=== PATIENT | male | born 1950 | race Caucasian/White ===

== ENCOUNTER 2020-12-12 09:18 | Inpatient (IN) | payer OTHER ==
[~2020-12-12] VITALS: Ht 182.9 cm; Wt 120.2 kg
[2020-12-12 09:40] LABS: BASOPHILS 0.2 % (0-2); EOSINOPHILS 1.6 % (0-7); HEMATOCRIT 43.4 % (42.0-54.0); HEMOGLOBIN 14.8 g/dL (13.5-17.5); IMMATURE GRANULOCYTES 0.4 % (0-5); LYMPHOCYTE ABS# 2.66 10x3/uL (1.32-3.57); LYMPHOCYTES 28.1 % (15-50); MCH 32.6 pg (26.0-34.0); MCHC 34.1 g/dL (31.0-37.0); MCV 95.6 fL (80.0-100.0); MEAN PLATELET VOLUME 9.1 fL (7.4-10.4); MONOCYTES 9.2 % (2-11); NEUTROPHIL ABS# 5.74 10x3/uL (1.78-5.38); NEUTROPHILS 60.5 % (40-80); PLATELET COUNT 221 10x3/uL (130-400); RBC 4.54 10x6/uL (4.20-6.10); RDW 13.3 % (11.5-14.5); WBC 9.5 10x3/uL (4.8-10.8)
[2020-12-12 09:48] LABS: CALC OSMOLALITY 282 mosm/kg (275-300); CALCIUM 9.3 mg/dL (8.5-10.1); CARBON DIOXIDE 27.1 mmol/L (21.0-32.0); CHLORIDE - SERUM 100 mmol/L (98-107); CREATININE - SERUM 1.4 mg/dL (0.6-1.3); GLUCOSE 178 mg/dL (74-106); POTASSIUM - SERUM 3.5 mmol/L (3.5-5.1); SODIUM 138 mmol/L (136-145); UREA NITROGEN 21 mg/dL (7-18); eGFR NON AFRICAN AMERICAN 53 mL/min (90-120)
[2020-12-12 10:02] LABS: ALBUMIN 3.6 g/dL (3.4-5.0); ALKALINE PHOSPHATASE 48 U/L (30-120); ALT (SGPT) 35 U/L (10-68); BILIRUBIN - TOTAL 0.46 mg/dL (0.2-1.3); MAGNESIUM - SERUM 1.8 mg/dL (1.8-2.4); PRO BNP 128 pg/mL (0-125); PROTEIN - SERUM 7.3 g/dL (6.4-8.2); TROPONIN-I < 0.017 ng/mL (0.000-0.060)
[2020-12-12 10:06] LABS: APTT 23.8 SECONDS (22.8-39.4); INR 1.01 (0.85-1.17); PROTIME 12.3 SECONDS (11.6-15.0)
[2020-12-12 10:08] LABS: D-DIMER-QUANTITATIVE < 0.27 ug/mLFEU (0.20-0.54)
--- NOTE | 2020-12-12 10:52 | NUR ---
DR. RIZO AND ROUSTABOUT CREW PUSHER AT BEDSIDE PERFORMING CHEST TUBE INSERTION AT THIS TIME. CONSENT SIGNED AND ON CHART PRIOR TO PATIETN RECEIVING PAIN MEDICATIONS. PATIENT RECEIVED PAIN MEDS PRIOR TO PROCEDURE STARTING. PATIENT AWAKE AND ALERT AT THIS TIME AND ON MONITORS.
--- NOTE | 2020-12-12 11:03 | NUR ---
PROCEDURE COMPLETE AT THIS TIME. 28 MALIAN CHEST TUBE PLACED TO LEFT CHEST WALL, HOOKED TO CHEST TUBE DRAINING SYSTEM WITH OCCLUSIVE DRESSING IN PLACE. DRAINAGE SYSTEM HOOKED TO LOW SUCTION AT SUGGESTED RATE. PATIETN TOLERATED WELL AND STATES ALREADY FEELS MUCH BETTER AND CAN TAKE A DEEP BREATH. PATIETN RESTING QUIETLY AT THIS TIME. CXR ORDERED FOR VERIFICATION OF PLACEMENT.
[2020-12-12 11:14] VITALS: BP 137/77
[2020-12-12 13:52] VITALS: BP 134/83
[2020-12-12] MEDS ORDERED: TENORMIN100 MG PO (15:01)
[2020-12-12] MEDS ORDERED: LIPITOR20 MG PO (15:03)
[2020-12-12] MEDS ORDERED: PROSCAR5 MG PO (15:04)
[2020-12-12] MEDS ORDERED: FENOFIBRATE160 MG PO (15:05)
[2020-12-12] MEDS ORDERED: GABAPENTIN300 MG PO ×2 (15:05→18:23)
[2020-12-12] MEDS ORDERED: GLUCOPHAGE500 MG PO (15:05)
[2020-12-12] MEDS ORDERED: SINGULAIR10 MG PO (15:06)
[2020-12-12] MEDS ORDERED: PROTONIX40 MG PO (15:06)
--- NOTE | 2020-12-12 15:40 | NUR ---
PATIENT TO GET CT REINSERTED.
[2020-12-12 15:46] VITALS: BP 177/99; BMI 32.6
--- NOTE | 2020-12-12 16:30 | NUR ---
PATIENT IN ROOM WITH IV INTACT, VS STABLE. BREATHING A LOT EASIER NOW. NO DISTRESS. O2 ON 3LNC. CT TO 20 CM SUCTION. DRESSING CDI. BSCDS ON AND WORKING. CALL LIGHT WITHIN REACH.
--- NOTE | 2020-12-12 17:45 | NUR ---
PATIENT IN BED WITH IV INTACT. NO COMPLAINTS OR SIGNS OF DISTRESS. CT INTACT AND TO 20CM SUCTION. SITTING UP IN BED WITH SCDS ON AND WORKING. CALL LIGHT WITHIN REACH.
[2020-12-12] MEDS ORDERED: BENADRYL50 MG PO (18:24)
[2020-12-12] MEDS ORDERED: FLOMAX0.4 MG PO (18:26)
[2020-12-12] MEDS ORDERED: TRELEGY ELLIPT1 EACH INH (18:28)
--- NOTE | 2020-12-12 20:03 | NUR ---
SPOKE WITH ARNULFO PARIS ABOUT PATIENTS NIGHT MEDS. STATED HE WOULD LOOK AT PATIENTS MED REC AT THIS TIME. CALL LIGHT WITHIN REACH.
[2020-12-12 20:40] VITALS: BP 156/75
[2020-12-13 01:49] VITALS: BP 134/75
--- NOTE | 2020-12-13 06:10 | NUR ---
I have reviewed this patient and I concur with the Shift Assessment completed by the Licensed Practical Nurse today this shift.
[2020-12-13 06:30] VITALS: BP 157/70
[2020-12-13 06:51] LABS: BASOPHILS 0.2 % (0-2); EOSINOPHILS 4.4 % (0-7); HEMATOCRIT 38.8 % (42.0-54.0); HEMOGLOBIN 12.9 g/dL (13.5-17.5); IMMATURE GRANULOCYTES 0.5 % (0-5); LYMPHOCYTE ABS# 1.15 10x3/uL (1.32-3.57); LYMPHOCYTES 18.2 % (15-50); MCH 32.2 pg (26.0-34.0); MCHC 33.2 g/dL (31.0-37.0); MCV 96.8 fL (80.0-100.0); MEAN PLATELET VOLUME 9.5 fL (7.4-10.4); MONOCYTES 10.4 % (2-11); NEUTROPHIL ABS# 4.19 10x3/uL (1.78-5.38); NEUTROPHILS 66.3 % (40-80); PLATELET COUNT 194 10x3/uL (130-400); RBC 4.01 10x6/uL (4.20-6.10); RDW 13.3 % (11.5-14.5)
[2020-12-13 07:05] LABS: ALBUMIN 2.9 g/dL (3.4-5.0); ANION GAP 11.4 mmol/L (8-16); BILIRUBIN - TOTAL 0.83 mg/dL (0.2-1.3); CALCIUM 8.2 mg/dL (8.5-10.1); CREATININE - SERUM 1.2 mg/dL (0.6-1.3); POTASSIUM - SERUM 3.4 mmol/L (3.5-5.1); PROTEIN - SERUM 6.3 g/dL (6.4-8.2)
[2020-12-13 07:09] LABS: WBC 6.3 10x3/uL (4.8-10.8)
--- NOTE | 2020-12-13 07:34 | NUR ---
RESTING IN BED WITH EYES OPEN, ALERT AND ORIENTED. IV LOCATED TO LEFT AC CURRENTLY SL. CURRENTLY RCVING 3L VIA NC. CHEST TUBE PRESENT TO LEFT SIDE. NO CURRENT S/S OF DISTRESS AT THIS TIME, DENIES CURRENT NEEDS, WILL CONT TO MONITOR.
[2020-12-13 09:23] VITALS: BP 142/66
[2020-12-13 13:30] VITALS: BP 133/67
--- NOTE | 2020-12-13 14:12 | NUR ---
REMOVED TEGADERM FROM AROUND CHEST TUBE SITE, THE ADHESIVE IS IRRITATING PTS SKIN AND CAUSING IT TO BLISTER AROUND THE EDGES WHERE THE TEGADERM REPLACED DRESSING WITH 4X4S AND METAPOR TAPE.
--- NOTE | 2020-12-13 16:12 | NUR ---
LINENS/GOWN CHANGED.
[2020-12-13 17:14] VITALS: BP 131/59
[2020-12-13 20:00] VITALS: BP 139/68
[2020-12-14] VITALS: BP 128/7
--- NOTE | 2020-12-14 01:31 | NUR ---
I have reviewed this patient and I concur with the Shift Assessment completed by the Licensed Practical Nurse today this shift.
[2020-12-14 04:00] VITALS: BP 132/79
[2020-12-14 07:33] LABS: BASOPHILS 0 % (0-2); EOSINOPHILS 0 % (0-7); HEMATOCRIT 41.4 % (42.0-54.0); HEMOGLOBIN 13.8 g/dL (13.5-17.5); IMMATURE GRANULOCYTES 0.5 % (0-5); LYMPHOCYTE ABS# 0.75 10x3/uL (1.32-3.57); LYMPHOCYTES 8.1 % (15-50); MCH 32.2 pg (26.0-34.0); MCHC 33.3 g/dL (31.0-37.0); MCV 96.5 fL (80.0-100.0); MEAN PLATELET VOLUME 9.5 fL (7.4-10.4); MONOCYTES 3.5 % (2-11); NEUTROPHIL ABS# 8.15 10x3/uL (1.78-5.38); NEUTROPHILS 87.9 % (40-80); PLATELET COUNT 228 10x3/uL (130-400); RBC 4.29 10x6/uL (4.20-6.10); RDW 13.1 % (11.5-14.5); WBC 9.3 10x3/uL (4.8-10.8)
[2020-12-14 07:37] LABS: ALBUMIN 3.2 g/dL (3.4-5.0); ANION GAP 15.1 mmol/L (8-16); BILIRUBIN - TOTAL 0.62 mg/dL (0.2-1.3); CALCIUM 8.9 mg/dL (8.5-10.1); CARBON DIOXIDE 24.7 mmol/L (21.0-32.0); CREATININE - SERUM 1.2 mg/dL (0.6-1.3); POTASSIUM - SERUM 3.8 mmol/L (3.5-5.1); PROTEIN - SERUM 7.3 g/dL (6.4-8.2)
[2020-12-14 09:10] VITALS: BP 132/65
[2020-12-14 13:37] VITALS: BP 142/65
[2020-12-14 17:03] VITALS: BP 132/61
[2020-12-14 20:00] VITALS: BP 142/75
[2020-12-15] VITALS: BP 148/72
[2020-12-15 04:00] VITALS: BP 150/75
[2020-12-15 07:06] LABS: BASOPHILS 0.1 % (0-2); EOSINOPHILS 0.4 % (0-7); HEMATOCRIT 38.7 % (42.0-54.0); HEMOGLOBIN 13.4 g/dL (13.5-17.5); IMMATURE GRANULOCYTES 0.7 % (0-5); LYMPHOCYTE ABS# 0.96 10x3/uL (1.32-3.57); LYMPHOCYTES 7.9 % (15-50); MCH 33.6 pg (26.0-34.0); MCHC 34.6 g/dL (31.0-37.0); MEAN PLATELET VOLUME 9.6 fL (7.4-10.4); NEUTROPHIL ABS# 10.18 10x3/uL (1.78-5.38); NEUTROPHILS 83.9 % (40-80); PLATELET COUNT 244 10x3/uL (130-400); RBC 3.99 10x6/uL (4.20-6.10); RDW 13.2 % (11.5-14.5)
[2020-12-15 07:07] LABS: WBC 12.1 10x3/uL (4.8-10.8)
[2020-12-15 07:12] LABS: ALBUMIN 2.9 g/dL (3.4-5.0); ANION GAP 13.9 mmol/L (8-16); BILIRUBIN - TOTAL 0.39 mg/dL (0.2-1.3); CALCIUM 8.7 mg/dL (8.5-10.1); CARBON DIOXIDE 25.2 mmol/L (21.0-32.0); CREATININE - SERUM 1.2 mg/dL (0.6-1.3); POTASSIUM - SERUM 4.1 mmol/L (3.5-5.1); PROTEIN - SERUM 6.7 g/dL (6.4-8.2)
[2020-12-15 08:37] VITALS: BP 139/73
[2020-12-15 12:52] VITALS: BP 150/77
[2020-12-15 17:31] VITALS: BP 147/80
--- NOTE | 2020-12-16 05:17 | NUR ---
Pt is resting in bed with significant other resting in recliner in room. No c/o pain. Did have some discomfort begining of shift and pt was SOB. Found to be laying on CT tube. Same moved and problem resolved immediately. Sats>90%. Continues on O2 via NC and CT also continues to output very small amount. Providers are aware of minimal drainage for CT tubes.
[2020-12-16 05:43] LABS: BASOPHILS 0.1 % (0-2); EOSINOPHILS 1.3 % (0-7); HEMATOCRIT 39.6 % (42.0-54.0); HEMOGLOBIN 13.4 g/dL (13.5-17.5); IMMATURE GRANULOCYTES 0.7 % (0-5); LYMPHOCYTE ABS# 1.65 10x3/uL (1.32-3.57); LYMPHOCYTES 15.7 % (15-50); MCH 32.5 pg (26.0-34.0); MCHC 33.8 g/dL (31.0-37.0); MCV 96.1 fL (80.0-100.0); MEAN PLATELET VOLUME 9.3 fL (7.4-10.4); MONOCYTES 10.6 % (2-11); NEUTROPHIL ABS# 7.53 10x3/uL (1.78-5.38); NEUTROPHILS 71.6 % (40-80); PLATELET COUNT 249 10x3/uL (130-400); RBC 4.12 10x6/uL (4.20-6.10); RDW 13.3 % (11.5-14.5); WBC 10.5 10x3/uL (4.8-10.8)
[2020-12-16 05:58] LABS: ALBUMIN 2.9 g/dL (3.4-5.0); ANION GAP 13.4 mmol/L (8-16); BILIRUBIN - TOTAL 0.35 mg/dL (0.2-1.3); CALCIUM 9.1 mg/dL (8.5-10.1); CARBON DIOXIDE 25.3 mmol/L (21.0-32.0); CREATININE - SERUM 1.1 mg/dL (0.6-1.3); POTASSIUM - SERUM 3.7 mmol/L (3.5-5.1); PROTEIN - SERUM 6.7 g/dL (6.4-8.2)
[2020-12-16 08:07] VITALS: BP 128/62
[2020-12-16 11:09] LABS: IMMUNOGLOBULIN E 508 IU/mL (6-495)
[2020-12-16 12:00] VITALS: BP 131/74
[2020-12-16 16:14] LABS: INR 1.06 (0.85-1.17); PROTIME 12.8 SECONDS (11.6-15.0)
[2020-12-16 17:29] VITALS: BP 133/76
[2020-12-16 20:00] VITALS: BP 147/75
[2020-12-17] VITALS (18 sets, daily range): BP systolic 101–136; BP diastolic 49–78
--- NOTE | 2020-12-17 05:54 | NUR ---
Pt is in bed resting at this time. Continues to only have one area bubbling on CT drainage system and unchanged since night. Anticipating surgery this morning. No c/o pain/discomfort.
[2020-12-17 07:22] LABS: BASOPHILS 0.2 % (0-2); EOSINOPHILS 3.9 % (0-7); HEMATOCRIT 43.1 % (42.0-54.0); HEMOGLOBIN 14.5 g/dL (13.5-17.5); LYMPHOCYTE ABS# 2.45 10x3/uL (1.32-3.57); LYMPHOCYTES 23.6 % (15-50); MCH 32.4 pg (26.0-34.0); MCHC 33.6 g/dL (31.0-37.0); MCV 96.4 fL (80.0-100.0); MEAN PLATELET VOLUME 9.5 fL (7.4-10.4); MONOCYTES 9.9 % (2-11); NEUTROPHIL ABS# 6.36 10x3/uL (1.78-5.38); NEUTROPHILS 61.4 % (40-80); PLATELET COUNT 228 10x3/uL (130-400); RBC 4.47 10x6/uL (4.20-6.10); RDW 13.3 % (11.5-14.5); WBC 10.4 10x3/uL (4.8-10.8)
[2020-12-17 07:30] LABS: ALBUMIN 3.1 g/dL (3.4-5.0); ANION GAP 12.7 mmol/L (8-16); BILIRUBIN - TOTAL 0.58 mg/dL (0.2-1.3); CARBON DIOXIDE 27.3 mmol/L (21.0-32.0); CREATININE - SERUM 1.2 mg/dL (0.6-1.3); PROTEIN - SERUM 6.9 g/dL (6.4-8.2)
--- NOTE | 2020-12-17 08:00 | NUR ---
PT GONE TO SURGERY, WILL GO TO ICU POST-OP
--- NOTE | 2020-12-17 10:15 | NUR ---
CVL AND ARTERIAL LINE PLACED BY ANESTHESIA, LEFT CHEST TUBE TAKEN OUT BEFORE PREP, ESPERANZA.
--- NOTE | 2020-12-17 11:35 | NUR ---
RECEIVED FROM OR PER BED. AWAKES EASILY TO VERBAL STIMULI SKIN WARM AND DRY. CHEST TUBES TO 20 CM SUCTION WITH SMALL AMOUNT OF BLOODY DRAINAGE IN CONTAINER AND TUBING. SMALL MIMIMAL AIR LEAK NOTED. EPIDURAL INFUSING 8 ML HOUR. WITH 3ML LANDSCAPE ACCOUNT MANAGER Q 15 MIN. DENIES PAIN. MARIA LUISA RIGHT RADIAL GOOD WAVE FORM SITE WITHOUT BLEEDING, BRUISING OR SWELLING. LEFT SUBCLAVIAN DOUBLE LUMEN INFUSING WITH NEOSYNEPHRINE WEAN FOR SBP 90. CVP LINE TO BROWN PORT. MONITOR SR. LINDQUIST CATH PATENT WITH CLEAR YELLOW URINE. HEAD OF BED ELEVATED 30 DEGREES. SQ AIR NOTED IN BILATERAL UPPER CHEST. LEFT SIDE GREATER THAN RIGHT. PATIENT IS HAVING LEFT SHOULDER PAIN. DR. CHAVARRIA AWARE.
--- NOTE | 2020-12-17 17:40 | NUR ---
DR. DEWITT HERE. GOOD COUGH. SQ AIR ON CHEST WITHOUT CHANGE. SQ AIR DOWN LEFT ARM.REPOSITIONED. TAKING PO FLUIDS AND ICE CREAM WITHOUT NAUSEA. USING RADIO SCRIPT WRITER EPIDURAL BUTTON
--- NOTE | 2020-12-17 19:02 | OP ---
PATIENT NAME: AMARA YEN MEDICAL RECORD: [id number] :48 LOCATION:[facility] ADMISSION DATE:12/12/20 SURGEON: ADRIA DEWITT MD DATE OF OPERATION: 12/17/2020 This is an retail loan originator assistant's note. I assisted Dr. Reinaldo Chavarria with the left thoracoscopy with bleb resections and mechanical pleurodesis. My involvement in the operation included creating one of the insertion sites for camera and instruments. Some sharp dissection. Some positioning and firing of the stapling device as well as some withdrawal of the specimens. Also, irrigation and suctioning and manipulation of the lung. I was present from the initial skin incisions to the point where the chest tubes were being inserted and then I scrubbed out. TRANSINT:[id number] Voice Confirmation ID: [id number] DOCUMENT ID: [id number] ADRIA DEWITT MD at 1902 CC: JOSSY CORREA MD, REINALDO CHAVARRIA MD and ИВАН FRANCIS [id number] DICTATION DATE: 12/17/20 1103 ALTERATION HAND: 12/17/20 1631 ADM IN [facility] [address] [place] [address]
[2020-12-18] VITALS (21 sets, daily range): BP systolic 107–138; BP diastolic 49–74; Ht 182.9 cm; Wt 120.2 kg
[2020-12-18 04:17] LABS: BASOPHILS 0.2 % (0-2); EOSINOPHILS 2.2 % (0-7); HEMATOCRIT 40.5 % (42.0-54.0); HEMOGLOBIN 13.5 g/dL (13.5-17.5); IMMATURE GRANULOCYTES 0.9 % (0-5); LYMPHOCYTES 15.5 % (15-50); MCH 32.5 pg (26.0-34.0); MCHC 33.3 g/dL (31.0-37.0); MCV 97.4 fL (80.0-100.0); MEAN PLATELET VOLUME 9.2 fL (7.4-10.4); MONOCYTES 10.4 % (2-11); NEUTROPHIL ABS# 8.25 10x3/uL (1.78-5.38); NEUTROPHILS 70.8 % (40-80); PLATELET COUNT 234 10x3/uL (130-400); RBC 4.16 10x6/uL (4.20-6.10); RDW 13.3 % (11.5-14.5); WBC 11.6 10x3/uL (4.8-10.8)
[2020-12-18 04:45] LABS: ALBUMIN 2.5 g/dL (3.4-5.0); ANION GAP 10.5 mmol/L (8-16); BILIRUBIN - TOTAL 0.85 mg/dL (0.2-1.3); CALCIUM 8.2 mg/dL (8.5-10.1); CARBON DIOXIDE 27.3 mmol/L (21.0-32.0); CREATININE - SERUM 1.3 mg/dL (0.6-1.3); POTASSIUM - SERUM 3.8 mmol/L (3.5-5.1); PROTEIN - SERUM 5.8 g/dL (6.4-8.2)
--- NOTE | 2020-12-18 06:30 | NUR ---
ANESTHESIA PAGED FOR REFILL OF EPIDURAL.
--- NOTE | 2020-12-18 07:24 | OP ---
PATIENT NAME: AMARA YEN MEDICAL RECORD: [id number] :48 LOCATION:[facility] D.CV05 ADMISSION DATE:12/12/20 SURGEON: REINALDO CHAVARRIA MD DATE OF OPERATION: 12/17/2020 SURGEON: Reinaldo Chavarria MD PROCEDURE PERFORMED: Left video-assisted thoracoscopic surgery with resection of large apical bulla and multiple lingular bullae, lysis of intrapleural dense apical adhesions, mechanical pleurodesis, bronchoscopy. CYBER WORKFORCE DEVELOPER AND MANAGER SURGEON: Adria Dewitt MD ANESTHESIA: Double lumen general endotracheal anesthesia. ESTIMATED BLOOD LOSS: 50 cc. COMPLICATIONS: None. SPECIMENS: 1. Apical bulla. 2. Lingular bullae with attached normal lung. INDICATION: Spontaneous pneumothorax and severe bullous emphysema. POSTOPERATIVE DIAGNOSIS: Spontaneous pneumothorax and severe bullous emphysema. CONDITION: Stable. DISPOSITION: ICU. OPERATIVE FINDINGS: 1. Lower lobe was somewhat small, but had no significant adhesions and the one bulla as seen on the CT scan. The upper lobe had dense apical adhesions at the site of the clear air leak from the giant apical bulla. The adhesions were resected with cautery and the apical bulla was stapled. 2. Anteriorly along the lingula, the multiple large and small bullae were resected in 2 sections. Progel was used along the staple lines. Mechanical pleurodesis using electrocautery and scratch pad intrapleurally at the apex and mid lung, good reexpansion of the lung and no air leak after the lung was reexpanded. Marcaine used for the incisions. INDICATION: Continued air leak and spontaneous pneumothorax. PROCEDURE IN DETAIL: The patient was brought to the operating suite where double lumen general endotracheal anesthesia was obtained, bronchoscopy was used to confirm position. The patient turned in the left lateral decubitus position with appropriate padding. Right chest was prepped and draped. Posteriorly a working port was made and anteriorly the scope was first introduced, but the lower lobe was free; therefore, the standard scope position was obtained. The scope was rotated between this position and posteriorly. Three working ports and the scope were used to free the lung using electrocautery and scissors and once it was freed, staple lines were placed to resect the bullae. Progel was placed. Lower lobe was visualized. Mechanical pleurodesis with electrocautery was performed, thorough irrigation was undertaken and the Progel was placed. OPERATIVE REPORT [id number] AMARA YEN Chest tubes were placed apically and inferiorly and the lung was reinflated, wounds were closed with Vicryl and 2 other layers. Dermabond was placed on the skin. Anesthesia reversed. The patient to ICU stable. TRANSINT:[id number] Voice Confirmation ID: [id number] DOCUMENT ID: [id number] REINALDO CHAVARRIA MD at 0724 CC: ADRIA DEWITT and JOSSY CORREA MD [id number] DICTATION DATE: 12/17/20 120 UNIVERSAL BANKER: 12/17/202020 ADM IN [facility] [address] [place] [address]
--- NOTE | 2020-12-18 08:10 | NUR ---
PATIENT DC TO ICU WILL NEED NEW ORDERS WHEN ABLE TO WORK WITH PT
--- NOTE | 2020-12-18 21:08 | NUR ---
DR CROSS IN ROOM AT SHIFT CHANGE CHANGEING EPIDURAL BAG, PT COMPLAINS OF ITCHING AND ORDER FOR BENADRYL 25MG CAP ONE TIME GIVEN.
[2020-12-19] VITALS (24 sets, daily range): BP systolic 99–159; BP diastolic 43–107
[2020-12-19 05:36] LABS: BASOPHILS 0.1 % (0-2); EOSINOPHILS 2.5 % (0-7); HEMATOCRIT 33.6 % (42.0-54.0); HEMOGLOBIN 11.2 g/dL (13.5-17.5); IMMATURE GRANULOCYTES 1.3 % (0-5); LYMPHOCYTE ABS# 1.66 10x3/uL (1.32-3.57); LYMPHOCYTES 15.2 % (15-50); MCH 31.8 pg (26.0-34.0); MCHC 33.3 g/dL (31.0-37.0); MCV 95.5 fL (80.0-100.0); MONOCYTES 10.2 % (2-11); NEUTROPHIL ABS# 7.74 10x3/uL (1.78-5.38); NEUTROPHILS 70.7 % (40-80); PLATELET COUNT 193 10x3/uL (130-400); RBC 3.52 10x6/uL (4.20-6.10); RDW 12.9 % (11.5-14.5); WBC 10.9 10x3/uL (4.8-10.8)
--- NOTE | 2020-12-19 07:19 | NUR ---
DR CHAVARRIA MADE AWARE OF CHANGE OF RYTHME AND INCREASED HR. LOPRESSOR 2.5MG IV ORDER RECEIVED AND TO NOTIFY ATTENDING DR EDGAR. ST ROSALES PAGED AND CALL RETURNED AND RECEIVED ORDERS TO START AMIODARONE PROTOCOL. 12 LEAD ECG OBTAINED PER ORDER WITH A-FLUTTER WITH VARIABLE AV BLOCK NOTED. MEDICATIONS GIVEN PER ORDERS. REPORTED TO ONCOMING STAFF.
[2020-12-19 07:47] LABS: ALBUMIN 2.3 g/dL (3.4-5.0); ANION GAP 13.1 mmol/L (8-16); BILIRUBIN - TOTAL 0.66 mg/dL (0.2-1.3); CARBON DIOXIDE 25.5 mmol/L (21.0-32.0); CREATININE - SERUM 1.3 mg/dL (0.6-1.3); MAGNESIUM - SERUM 2.1 mg/dL (1.8-2.4); PHOSPHOROUS 2.7 mg/dL (2.5-4.9); POTASSIUM - SERUM 3.6 mmol/L (3.5-5.1); PROTEIN - SERUM 5.8 g/dL (6.4-8.2)
--- NOTE | 2020-12-19 09:26 | NUR ---
Pt resting in bed and repositioned for comfort. Assessment per flow sheet, call light in reach, bed in low position. Pt denies any needs or pain at this time and states that he is going to take a nap, will continue to monitor.
--- NOTE | 2020-12-19 17:32 | NUR ---
Pt had chest tube D/C'd per Dr. Portillo, epidural D/C'd per anestheia, and art line D/C'd. Pt resting in bed and denies any needs at this time.
[2020-12-20] VITALS (11 sets, daily range): BP systolic 113–157; BP diastolic 57–80
[2020-12-20 06:16] LABS: BASOPHILS 0.1 % (0-2); EOSINOPHILS 3.8 % (0-7); HEMATOCRIT 35.3 % (42.0-54.0); HEMOGLOBIN 11.8 g/dL (13.5-17.5); IMMATURE GRANULOCYTES 1.7 % (0-5); LYMPHOCYTE ABS# 1.06 10x3/uL (1.32-3.57); MCH 32.2 pg (26.0-34.0); MCHC 33.4 g/dL (31.0-37.0); MCV 96.2 fL (80.0-100.0); MEAN PLATELET VOLUME 9.2 fL (7.4-10.4); MONOCYTES 11.2 % (2-11); NEUTROPHILS 70.2 % (40-80); PLATELET COUNT 224 10x3/uL (130-400); RBC 3.67 10x6/uL (4.20-6.10); RDW 12.8 % (11.5-14.5); WBC 8.1 10x3/uL (4.8-10.8)
[2020-12-20 06:33] LABS: ALBUMIN 2.1 g/dL (3.4-5.0); ANION GAP 10.6 mmol/L (8-16); BILIRUBIN - TOTAL 0.49 mg/dL (0.2-1.3); CALCIUM 7.9 mg/dL (8.5-10.1); CARBON DIOXIDE 27.7 mmol/L (21.0-32.0); CREATININE - SERUM 1.1 mg/dL (0.6-1.3); POTASSIUM - SERUM 3.3 mmol/L (3.5-5.1); PROTEIN - SERUM 5.8 g/dL (6.4-8.2)
--- NOTE | 2020-12-20 06:45 | NUR ---
PT BATHED WITH COMPLETE LINEN CHANGE. PT UP TO BEDSIDE CHAIR. LINDQUIST D/C'D WITH 125ML OUTPUT IN LINDQUIST NOTED. PT TOLERATED WELL.
--- NOTE | 2020-12-20 07:30 | NUR ---
awake and alert. up in chair at bedside. no distress, denies pain. dressing back and lateral left side dry and intact. oxygen at 2 liters per nc. left subclavian cath central infusing with cordarone and plasmaylyte. monitor sr.
--- NOTE | 2020-12-20 10:55 | NUR ---
Nutrition Follow-up: POD 3. Eating well. Diet: Diabetic PO intake: 75% x 3 (12/19) Wt: 264.5# (12/19) Labs noted: K+ 3.3, Glu 171, Ca 7.9, Alb 2.1 Meds noted: Florajen, Miralax, Protonix, Humulin -Encourage PO intake and honor food preferences within diet restrictions. -RD follow-up: 12/22
--- NOTE | 2020-12-20 12:19 | NUR ---
report called to Laci. patient to transfer to room 2122 per wheel chair.
--- NOTE | 2020-12-20 12:55 | NUR ---
1246-RECEIVED FROM CVICU ON ROOM AIR IN WHEELCHAIR. O2 SAT IS 91%. LEFT CVL SEEN WITH SALINE LOCK. PLACED ON HEART MONITOR WITH SR, HR 84. PLACED ON 3L PER NC WITH O2 SAT TO 98%. SUBCUTANOUS CRACKLE FELT IN UPPER CHEST AND LEFT ARM. LARGE BRUISED AREA SEEN TO RIGHT WRIST - CVICU STATES WHERE ART LINE WAS. TAPE BLISTERS SEEN UNDER LEFT BREAST. 2 POSTERIOR MEPILEX DRESSING SEEN TO BACK, ONE MEPILEX LATERAL AND ONE 4 X 4 WITH OPSITE TO ANTERIOR LEFT. DATED. RIGHT ABDOMINAL AREA SEEMS SLIGHTLY LARGER THAN LEFT SIDE WITH SLIGHT MOTTLED APEARANCE. THIS IS VERIFIED ALSO WITH LADONNA MORENO, LPN RN. I CALLED YEHUDA IN CVICU AND ASKED HER ABOUT IT AND SHE STATES SHE DID NOT NOTICE IT. BILATERAL KNEE HIGH EREN HOSE ON WITH NON SKID SOCKS. PATIENT STILL NOT HAS VOIDED.
--- NOTE | 2020-12-20 13:40 | NUR ---
I CALLED RICCARDO BENEDICT TO COME LOOK AT PATIENT ABDOMINAL AREA. HE DID. NO NEW ORDERS. I HAD ALSO SEEN DR CHAVARRIA AND MADE HIM AWARE OF IT AND NO NEW ORDERS, SAID TO ASK PRIMARY.
--- NOTE | 2020-12-20 14:09 | NUR ---
BILATERAL SCD PLACED ON PATIENT AND TURNED ON.
--- NOTE | 2020-12-20 16:01 | NUR ---
VOIDS 400 CC DARK YELLOW URINE.
--- NOTE | 2020-12-21 00:42 | NUR ---
I have reviewed this patient and I concur with the Shift Assessment completed by the Licensed Practical Nurse today this shift.
[2020-12-21 00:53] VITALS: BP 131/73
[2020-12-21 04:38] LABS: BASOPHILS 0.3 % (0-2); EOSINOPHILS 4.7 % (0-7); HEMOGLOBIN 11.5 g/dL (13.5-17.5); IMMATURE GRANULOCYTES 1.8 % (0-5); LYMPHOCYTE ABS# 1.06 10x3/uL (1.32-3.57); LYMPHOCYTES 15.5 % (15-50); MCH 32.6 pg (26.0-34.0); MCHC 33.8 g/dL (31.0-37.0); MCV 96.3 fL (80.0-100.0); MEAN PLATELET VOLUME 9.1 fL (7.4-10.4); MONOCYTES 12.3 % (2-11); NEUTROPHIL ABS# 4.47 10x3/uL (1.78-5.38); NEUTROPHILS 65.4 % (40-80); PLATELET COUNT 241 10x3/uL (130-400); RBC 3.53 10x6/uL (4.20-6.10); RDW 12.7 % (11.5-14.5); WBC 6.8 10x3/uL (4.8-10.8)
[2020-12-21 05:04] LABS: ANION GAP 9.6 mmol/L (8-16); BILIRUBIN - TOTAL 0.53 mg/dL (0.2-1.3); CALCIUM 8.1 mg/dL (8.5-10.1); CARBON DIOXIDE 26.2 mmol/L (21.0-32.0); CREATININE - SERUM 1.2 mg/dL (0.6-1.3); POTASSIUM - SERUM 3.8 mmol/L (3.5-5.1); PROTEIN - SERUM 5.8 g/dL (6.4-8.2)
[2020-12-21 05:35] VITALS: BP 122/70
--- NOTE | 2020-12-21 07:10 | NUR ---
RECEIVE SHIFT REPORT. RESTING IN BED COMPLAINTS OF BEING HOT. AIR IN ROOM ADJUSTED AND TEMPERATURE CHECKED. AFEBRILE. SHOW WORKER GAVE PATIENT ICE PACK. FAMILY MEMBER AT BEDSIDE. DENIES ANY OTHER NEEDS AT THIS TIME. CALL LIGHT IN REACH. WILL CONTINUE POC AND SAFETY PRECAUTIONS.
[2020-12-21 08:14] VITALS: BP 129/73
[2020-12-21] MEDS ORDERED: TRICOR145 MG PO (10:58)
[2020-12-21] MEDS ORDERED: AMIODARONE HCL200 MG PO (10:58)
--- NOTE | 2020-12-21 12:24 | NUR ---
D/C LEFT SUBCLAVIAN CENTRAL LINE WITH MINIMAL BLEEDING. TOLERATED WELL. DRESSINGS CHANGED. DISCHARGE INSTRUCTIONS GIVEN VERBALLY AND HANDOUTS PROVIDED. FAMILY AT BEDSIDE TO TAKE HIM HOME. TAKEN DOWN TO ED ENTRANCE VIA WHEELCHAIR.
== END 2020-12-21 13:30 | disposition home or self-care (01) | DRG 163 ==
LOC: D.ER 09:18 → D.MS 12:23 → D.CVICU 12-17 11:48 → D.M2 12-20 12:47
PROVIDERS: Anesthesiology; Emergency Medicine; Family Medicine; General Practice; Internal Medicine Pulmonary Disease; Thoracic Surgery (Cardiothoracic Vascular Surgery); ADMIT Family Medicine; ATTEND Family Medicine
PROC: 0W9B30Z Drainage of Left Pleural Cavity with Drainage Device, Percutaneous Approach (ICD-10-PCS; 2020-12-12)
PROC: 0W9B30Z Drainage of Left Pleural Cavity with Drainage Device, Percutaneous Approach (ICD-10-PCS; principal; 2020-12-12 15:50)
PROC: 0B5P4ZZ Destruction of Left Pleura, Percutaneous Endoscopic Approach (ICD-10-PCS; 2020-12-17)
PROC: 0BNP4ZZ Release Left Pleura, Percutaneous Endoscopic Approach (ICD-10-PCS; 2020-12-17)
PROC: 0BBL4ZZ Excision of Left Lung, Percutaneous Endoscopic Approach (ICD-10-PCS; 2020-12-17)
DX: J43.0 Unilateral pulmonary emphysema [MacLeod's syndrome] (principal); J96.21 Acute and chronic respiratory failure with hypoxia; J86.0 Pyothorax with fistula; J84.9 Interstitial pulmonary disease, unspecified; J93.12 Secondary spontaneous pneumothorax; E11.65 Type 2 diabetes mellitus with hyperglycemia; I10 Essential (primary) hypertension; J44.9 Chronic obstructive pulmonary disease, unspecified; Z87.891 Personal history of nicotine dependence; E78.5 Hyperlipidemia, unspecified; K21.9 Gastro-esophageal reflux disease without esophagitis; J30.9 Allergic rhinitis, unspecified; N40.0 Benign prostatic hyperplasia without lower urinary tract symptoms; E11.21 Type 2 diabetes mellitus with diabetic nephropathy

== ENCOUNTER → 2021-01-04 11:47 | Outpatient (CLI) | payer OTHER ==
[2020-12-18 12:07] VITALS: BMI 33.7
[~2021-01-04 11:47] MED LIST: AMIODARONE HCL200 MG PO; BENADRYL50 MG PO; FENOFIBRATE160 MG PO; FLOMAX0.4 MG PO; GABAPENTIN300 MG PO; GLUCOPHAGE500 MG PO; LIPITOR20 MG PO; PROSCAR5 MG PO; PROTONIX40 MG PO; SINGULAIR10 MG PO; TENORMIN100 MG PO; TRELEGY ELLIPT1 EACH INH; TRICOR145 MG PO
== END | disposition home or self-care (01) ==
LOC: D.RAD 11:47
PROVIDERS: ATTEND Family Medicine
DX: Z98.890 Other specified postprocedural states (principal)

== ENCOUNTER 2021-01-26 10:12 | Inpatient (IN) | payer OTHER ==
[2021-01-26] VITALS (20 sets, daily range): BP systolic 42–147; BP diastolic 23–80; BMI 32.5
[~2021-01-26] VITALS: Ht 182.9 cm; Wt 108.2 kg
[2021-01-26 11:45] LABS: EOSINOPHILS 9.8 % (0-7); HEMATOCRIT 41.9 % (42.0-54.0); HEMOGLOBIN 14.4 g/dL (13.5-17.5); LYMPHOCYTES 22.5 % (15-50); MCH 32.7 pg (26.0-34.0); MCHC 34.4 g/dL (31.0-37.0); MCV 95.2 fL (80.0-100.0); MEAN PLATELET VOLUME 6.9 fL (7.4-10.4); MONOCYTES 8.3 % (2-11); NEUTROPHILS 58.4 % (40-80); RDW 14.3 % (11.5-14.5); WBC 9.9 10x3/uL (4.8-10.8)
[2021-01-26 11:50] LABS: PLATELET COUNT 292 10x3/uL (130-400)
[2021-01-26 11:53] LABS: CALC OSMOLALITY 280 mosm/kg (275-300); CARBON DIOXIDE 29.2 mmol/L (21.0-32.0); CHLORIDE - SERUM 101 mmol/L (98-107); CREATININE - SERUM 1.3 mg/dL (0.6-1.3); GLUCOSE 116 mg/dL (74-106); POTASSIUM - SERUM 3.6 mmol/L (3.5-5.1); SODIUM 139 mmol/L (136-145); UREA NITROGEN 17 mg/dL (7-18); eGFR NON AFRICAN AMERICAN 58 mL/min (90-120)
[2021-01-26 12:00] LABS: APTT 26.7 SECONDS (22.8-39.4); INR 1.04 (0.85-1.17); PROTIME 12.6 SECONDS (11.6-15.0)
[2021-01-26 12:09] LABS: ALBUMIN 3.5 g/dL (3.4-5.0); ALKALINE PHOSPHATASE 69 U/L (30-120); ALT (SGPT) 38 U/L (10-68); BILIRUBIN - TOTAL 0.59 mg/dL (0.2-1.3); CKMB 0.7 U/L (0.0-3.6); CREATINE KINASE 76 UL (21-232); LIPASE 52 U/L (73-393); MAGNESIUM - SERUM 1.6 mg/dL (1.8-2.4); PRO BNP 513 pg/mL (0-125); PROTEIN - SERUM 7.6 g/dL (6.4-8.2)
[2021-01-26 12:11] LABS: TROPONIN-I < 0.017 ng/mL (0.000-0.060)
[2021-01-26 15:46] LABS: APTT 24.8 SECONDS (22.8-39.4); INR 1.11 (0.85-1.17); PROTIME 13.2 SECONDS (11.6-15.0)
[2021-01-27] VITALS (42 sets, daily range): BP systolic 82–132; BP diastolic 41–67; BMI 32.3
[2021-01-27 05:14] LABS: BASOPHILS 0.3 % (0-2); HEMATOCRIT 39.1 % (42.0-54.0); HEMOGLOBIN 13.5 g/dL (13.5-17.5); LYMPHOCYTES 14.5 % (15-50); MCH 32.9 pg (26.0-34.0); MCHC 34.6 g/dL (31.0-37.0); MCV 95.1 fL (80.0-100.0); MEAN PLATELET VOLUME 6.8 fL (7.4-10.4); MONOCYTES 12.8 % (2-11); NEUTROPHILS 71.4 % (40-80); PLATELET COUNT 254 10x3/uL (130-400); RBC 4.11 10x6/uL (4.20-6.10); RDW 14.1 % (11.5-14.5); WBC 8.5 10x3/uL (4.8-10.8)
[2021-01-27 05:28] LABS: ALBUMIN 2.8 g/dL (3.4-5.0); ANION GAP 12.4 mmol/L (8-16); BILIRUBIN - TOTAL 0.58 mg/dL (0.2-1.3); CALCIUM 7.9 mg/dL (8.5-10.1); CARBON DIOXIDE 28.3 mmol/L (21.0-32.0); CREATININE - SERUM 1.2 mg/dL (0.6-1.3); MAGNESIUM - SERUM 1.7 mg/dL (1.8-2.4); PHOSPHOROUS 5.5 mg/dL (2.5-4.9); POTASSIUM - SERUM 3.7 mmol/L (3.5-5.1); PROTEIN - SERUM 6.3 g/dL (6.4-8.2)
--- NOTE | 2021-01-27 10:39 | OP ---
PATIENT NAME: AMARA YEN MEDICAL RECORD: [id number] :48 LOCATION:D.[facility] D.CV02 ADMISSION DATE:01/26/21 SURGEON: REINALDO CHAVARRIA MD DATE OF OPERATION: 01/26/2021 SURGEON: Reinaldo Chavarria MD PROCEDURE: 1. Right video-assisted thoracoscopic surgery with lysis of intrapleural adhesions. 2. Right thoracotomy with total decortication. 3. Resection of giant bulla medial right middle lobe. 4. Resection of blebs inferior right middle lobe. 5. Resection of blebs superior segment right lower lobe. 6. Bronchoscopy. PREOPERATIVE DIAGNOSIS: 1. Spontaneous pneumothorax with bullous emphysema. 2. History of right thoracotomy. 3. History of left thoracoscopy and bleb stapling within the last 2 months. ANESTHESIA: General endotracheal anesthesia. ESTIMATED BLOOD LOSS: 400 cc. SPECIMENS: Two sections of blebs and the giant bulla from the middle lobe, which was the source of the air leak. COMPLICATIONS: None. CONDITION: Stable. DISPOSITION: CV-ICU. OPERATIVE FINDINGS: Dense intrapleural adhesions limited visualization, especially medially near the great vessels and the thoracoscopy was aborted after taking down a good number of adhesions of the lower lobe and along the major fissure with the middle lobe. Thoracotomy below the old thoracotomy taken down intrapleural adhesions, which were dense posteriorly to a consolidated appearing lower lobe and upper lobe all the way to the apex, the minor fissure was dissected out and after that when the middle lobe could be rotated it was clear that the air leak site was the 4 cm bulla from the medial aspect and it was removed with kenny. Some smaller collections of blebs inferiorly on the superior segment were stapled as were some in the superior segment of the lower lobe. There was an air leak at the conclusion of the case, the lung reinflated well and hemostasis was ensured. Bronchoscopy with no endobronchial lesions. OPERATIVE INDICATION: Spontaneous pneumothorax, severe dyspnea. DESCRIPTION OF PROCEDURE: The patient was brought to the operating suite double lumen tube placed immediately and the right lung isolated and left lung ventilated. Throughout the case, the patient got more hypoxemic, but tolerated one lung ventilation. The right chest was sterilely prepped and draped after placement of monitoring lines by anesthesia. Thoracoscopy was performed through an opening just anterior to the tip of the scapula and then more inferiorly OPERATIVE REPORT [id number] AMARA YEN working port was placed where the lung was grasped and then anterior port the later became a chest tube site was opened and this was used to divide the adhesions along the major fissure between the lower lobe and middle lobe; however, working more medially, this became tenuous as we were near the pericardium major vessels in this medial lobe clearly extended well across the midline; therefore it was aborted. Thoracotomy connecting the 2 incisions was made and the chest was opened, direct visualization was used to take down the multiple adhesions to a consolidated appearing lower lobe as well as the inferior pulmonary ligament and then all the way up posteriorly to the apex where the old staple lines from previous apical surgery many years ago was performed. After all the adhesions were taken down, the middle lobe was free completely staple line along the giant bulla and then staple lines of the sections of blebs in the inferior part of the right middle lobe and superior segment. Area was thoroughly irrigated. Hemostasis was ensured and chest tubes were placed. Chest was closed with pericostal sutures running muscle. Two subcutaneous layers and skin clips epidural and then the patient to ICU. TRANSINT:[id number] Voice Confirmation ID: [id number] DOCUMENT ID: [id number] REINALDO CHAVARRIA MD at 1039 CC: JOSSY CORREA MD [id number] DICTATION DATE: 01/26/211911 DATA ENTRY PROCESSOR: 01/26/21 2238 ADM IN [facility] [address] [place] [id number]
--- NOTE | 2021-01-27 14:32 | NUR ---
0730 - RECIEVED AWAKE AND ALERT -SIGNIFICANT OTHER AT BEDSIDE-EPIDURAL IN PLACE-L DUAL CHEST TUBE CONTAINER -2ND CHAMBER FULL-CANNISTER CHANGED OUT PER PROTOCOL-NO AIRLEAK AT THIS TIME NOTED-20CM SUCTION-SEROUS DRAINAGE-NOTED PT AGITATED/RESTLESS/ANXIOUS-FRIEND REMAINS AT BEDSIDE-CLR LIQUID TRAY TAKEN 0900-DR CROWE AT BEDSIDE -STATUS REPORT GIVEN 0930-DR CHAVARRIA AT BEDSIDE-MADE AWARE OF PT ALCOHOLIC INTAKE BY REPORT FROM PACKAGING MATERIALS INSPECTOR ASSESSMENT AND NOTIFICATION-DR CROWE NOTIFIED ORDERS RECIEVED AND NOTED 1130-ATIVAN 2MG PO GIVEN FOR INCREASED AGITATION-NOTED HR 128 UCAF TO SR 98-RESTLESS 1230-MVI IV BAG STARTED
--- NOTE | 2021-01-27 14:45 | NUR ---
1400-PT ABLE TO FOLLOW DIRECTION AT THIS TIME-ENCOURAGED USE OF INCENTIVE [id number]-REPOSITIONED AND EXPLAINED REASON
--- NOTE | 2021-01-27 16:11 | NUR ---
DANGLED AT SIDE OF BED- INCENTIVE 800ML X8-TOLERATED WELL-NO WEIGHT BEARING DONE AT THIS TIME-AIR LEAK NOTED
--- NOTE | 2021-01-27 18:27 | NUR ---
DR CHAVARRIA NOTIFIED OF AFIB -ORDER RECIEVED AND NOTED
[2021-01-28] VITALS (23 sets, daily range): BP systolic 95–133; BP diastolic 44–83
[2021-01-28 04:45] LABS: HEMATOCRIT 33.5 % (42.0-54.0); HEMOGLOBIN 11.1 g/dL (13.5-17.5); LYMPHOCYTE ABS# 2.22 10x3/uL (1.32-3.57); MCH 32.1 pg (26.0-34.0); MCHC 33.1 g/dL (31.0-37.0); MCV 96.8 fL (80.0-100.0); MEAN PLATELET VOLUME 8.9 fL (7.4-10.4); PLATELET COUNT 211 10x3/uL (130-400); RBC 3.46 10x6/uL (4.20-6.10); RDW 13.9 % (11.5-14.5)
[2021-01-28 04:48] LABS: WBC 11.1 10x3/uL (4.8-10.8)
[2021-01-28 04:59] LABS: ALBUMIN 2.3 g/dL (3.4-5.0); BILIRUBIN - TOTAL 0.55 mg/dL (0.2-1.3); CALCIUM 7.3 mg/dL (8.5-10.1); CARBON DIOXIDE 30.6 mmol/L (21.0-32.0); CREATININE - SERUM 1.2 mg/dL (0.6-1.3); MAGNESIUM - SERUM 2.1 mg/dL (1.8-2.4); PROTEIN - SERUM 5.7 g/dL (6.4-8.2)
[2021-01-28 05:00] LABS: ANION GAP 8.5 mmol/L (8-16); PHOSPHOROUS 3.3 mg/dL (2.5-4.9); POTASSIUM - SERUM 3.1 mmol/L (3.5-5.1)
[2021-01-28 05:12] LABS: EOSINOPHILS 9 % (0-7); LYMPHOCYTES 22 % (15-50); MONOCYTES 11 % (2-11); NEUTROPHILS 58 % (40-80); PLATELET ESTIMATE NORMAL
--- NOTE | 2021-01-28 10:10 | NUR ---
0940-NOTED BLOCKED PAC'S SR-PALPABLE JT-01-41-CORDARONE GTT TURNED OFF AND DR CHAVARRIA NOTIFIED ORDER RECIEVED AND CORDARONE GTT D/C'D
--- NOTE | 2021-01-28 13:49 | NUR ---
1230-DR CORREA AT BEDSIDE-DR PERDOMO PRESENT FOR EPIDURAL CHECK-CONFIRMED LOVENOX DOSE-SAME GIVEN- 1300-DR CHAVARRIA AT BEDSIDE-STATUS REPORT GIVEN
[2021-01-28] MEDS ORDERED: PAXIL20 MG PO (16:29)
--- NOTE | 2021-01-28 18:35 | NUR ---
1500-PT STATED HASN'T HAD PAXIL IN 3 DAYS-NOTED NOT ON HOME MED LIST-FOUND ON REFILL PRESCRIPTION LIST-NOTIFIED MD-SAME RESTARTED
--- NOTE | 2021-01-28 21:49 | NUR ---
MULTIPLE RESAW OPERATOR REPLACED MEDS IN EPIDURAL LOCK BOX.
[2021-01-29] VITALS (24 sets, daily range): BP systolic 101–141; BP diastolic 47–77
[2021-01-29 04:46] LABS: BASOPHILS 0.5 % (0-2); EOSINOPHILS 6.5 % (0-7); HEMATOCRIT 29.6 % (42.0-54.0); HEMOGLOBIN 10.2 g/dL (13.5-17.5); LYMPHOCYTES 16.7 % (15-50); MCH 33.1 pg (26.0-34.0); MCHC 34.3 g/dL (31.0-37.0); MCV 96.4 fL (80.0-100.0); MONOCYTES 10.5 % (2-11); NEUTROPHILS 65.8 % (40-80); PLATELET COUNT 215 10x3/uL (130-400); RBC 3.07 10x6/uL (4.20-6.10); RDW 14.1 % (11.5-14.5)
[2021-01-29 05:34] LABS: ALBUMIN 2.1 g/dL (3.4-5.0); ANION GAP 8.7 mmol/L (8-16); BILIRUBIN - TOTAL 0.67 mg/dL (0.2-1.3); CALCIUM 7.6 mg/dL (8.5-10.1); CARBON DIOXIDE 29.2 mmol/L (21.0-32.0); CREATININE - SERUM 1.1 mg/dL (0.6-1.3); MAGNESIUM - SERUM 2.2 mg/dL (1.8-2.4); PHOSPHOROUS 2.9 mg/dL (2.5-4.9); PROTEIN - SERUM 5.8 g/dL (6.4-8.2)
[2021-01-29 05:43] LABS: POTASSIUM - SERUM 3.9 mmol/L (3.5-5.1)
--- NOTE | 2021-01-29 10:00 | NUR ---
DR. GINO SINGH. ORDERS RECEIVED.
--- NOTE | 2021-01-29 12:02 | NUR ---
Nutrition Follow-up: POD 3 VATS. Decreased appetite. Reports eating >50% of breakfast this AM. Denies N/V, chewing/swallowing difficulties. -BM; +flatus. Agreed to try Glucerna at lunch today. Diet: Regular PO intake: 58% avg x 3 meals yesterday WT: 252# (01/29) Labs noted: Na 134, Glu 131, Ca 7.6, Alb 2.1 Meds noted: KDur, Humalog, Pepcid, banana bag @ 125, electrolyte protocol -Change to carb consistent diet. -Glucerna sent with lunch today. -Pt may benefit from a daily bowel regimen. -RD will follow up within 2-3 days.
--- NOTE | 2021-01-29 13:12 | NUR ---
L ART LINE REMOVED PER ORDER. TIP INTACT. PRESSURE HELD APPROX. 10 MINUTES AND PRESSURE DRSG APPLIED. HOOKED UP NEW CVP MONITOR.
--- NOTE | 2021-01-29 14:53 | NUR ---
PLACED ON ANGELICA OVERLAY MATTRESS.
--- NOTE | 2021-01-29 15:18 | NUR ---
DR. CROSS ROUNDS, REPORTS WILL GET MORE EPIDURAL IT WILL NOT LAST THROUGH THE NIGHT.
--- NOTE | 2021-01-29 23:19 | NUR ---
PT RESTING IN BED AFTER COMPLETE BED BATH AND DRESSING CHANGE TO CHEST TUBE SITES. PT AAOX4, CROFT. EPIDURAL SITE ASSESSED, DRESSING C/D/I, DRESSINGS TO RIGHT CHEST TUBES AND SURGICAL INCISION SATURATED WITH SEROSANG DRAINAGE, DRESSINGS CHANGED PER MD ORDER. 02 VIA NC @ 4L, HUMIDITY ADDED. LINDQUIST CARE PREFORMED. RIGHT SC CVL SL. EPIDURAL FENT 3MCG/BUP0.25%, WITH CONT RATE SET 6ML/HR, WITH PCEA DOSE OF 4ML Q20MIN LOCKOUT, PT DENIES PAIN OR NEEDING TO PUSH CLINICAL DATA ANALYST BUTTON DURING DAY, RESOVOR VOLUME 206.9 @2230. PT POSTIONED FOR COMFORT AND PRESSURE RELIEF. CALL LIGHT, PERSONAL ITEMS AND CLINICAL DATA ANALYST BUTTON WITHIN REACH.
[2021-01-30] VITALS (27 sets, daily range): BP systolic 101–146; BP diastolic 52–74
[2021-01-30 00:41] LABS: BILIRUBIN NEGATIVE (NEGATIVE); KETONE NEGATIVE (NEGATIVE); NITRITE NEGATIVE (NEGATIVE); UROBILINOGEN NORMAL mg/dL (< 2)
[2021-01-30 03:47] LABS: BASOPHILS 0.6 % (0-2); EOSINOPHILS 8.1 % (0-7); HEMATOCRIT 27.9 % (42.0-54.0); HEMOGLOBIN 9.7 g/dL (13.5-17.5); LYMPHOCYTES 16.9 % (15-50); MCH 33.3 pg (26.0-34.0); MCHC 34.6 g/dL (31.0-37.0); MEAN PLATELET VOLUME 7.2 fL (7.4-10.4); NEUTROPHILS 63.4 % (40-80); PLATELET COUNT 239 10x3/uL (130-400); RBC 2.91 10x6/uL (4.20-6.10); RDW 14.3 % (11.5-14.5); WBC 8.6 10x3/uL (4.8-10.8)
[2021-01-30 03:53] LABS: ALBUMIN 1.8 g/dL (3.4-5.0); ALKALINE PHOSPHATASE 51 U/L (30-120); BILIRUBIN - TOTAL 0.52 mg/dL (0.2-1.3); CALC OSMOLALITY 271 mosm/kg (275-300); CALCIUM 7.5 mg/dL (8.5-10.1); CARBON DIOXIDE 28.5 mmol/L (21.0-32.0); CHLORIDE - SERUM 103 mmol/L (98-107); GLUCOSE 125 mg/dL (74-106); PHOSPHOROUS 2.8 mg/dL (2.5-4.9); POTASSIUM - SERUM 3.7 mmol/L (3.5-5.1); PROTEIN - SERUM 5.5 g/dL (6.4-8.2); SODIUM 136 mmol/L (136-145); UREA NITROGEN 11 mg/dL (7-18); eGFR NON AFRICAN AMERICAN 78 mL/min (90-120)
[2021-01-30 03:57] LABS: ALT (SGPT) 12 U/L (10-68)
--- NOTE | 2021-01-30 12:39 | NUR ---
LYING IN BED AWAKE AT THIS TIME. PT HAS SAT ON SIDE OF BED WITH FEET DANGLING WITH PHYSICAL THERAPY ASSIST FOR ABOUT 10 MIN TODAY, HE TOLERATED WELL. VSS. PT NOTED TO HAVE A WEAK COUGH, BUT IT APPEARS TO BE GETTING STRONGER. PT REPORTS HE IS STARTING TO BE ABLE TO COUGH UP SPUTUM AT TIMES NOW. IS ATTEMPT 500. VSS. WILL CONTINUE PLAN OF CARE.
--- NOTE | 2021-01-30 13:58 | NUR ---
RT LATERAL CHEST TUBES X 2 DCD AT THIS TIME BY DR CHAVARRIA. PT TOLERATED WELL. VASOLINE GAUZE, 4X4, AND TAGEDERM IN PLACE. PER DR CHAVARRIA, CALL ANESTHESIA TO DC EPIDURAL AND THEN GET PT UP IN CHAIR LATER TODAY. WILL PAGE ANESTHESIA. VSS. NO ACUTE DISTRESS NOTED.
--- NOTE | 2021-01-30 14:03 | NUR ---
ANESTHESIA PAGED TO DC. RUIZ.
--- NOTE | 2021-01-30 16:04 | NUR ---
PER DR CROSS, UNABLE TO DC EPIDURAL UNTIL TOMORROW AT 8AM SINCE PT RECIEVED LOVENOX THIS MORNING AT 0830. HE STATED TO HOLD AM LOVENOX NOW AND UNTIL 4 HOURS AFTER EPIDURAL IS DCD TOMORROW.
--- NOTE | 2021-01-30 20:12 | NUR ---
PT RESTING IN BED WITH EYES CLOSED, APPEARS SLEEPING, RESP EVEN/UNLABORED. VITAL SIGNS STABLE. EPIDURAL WITH FENT/BUP AT CONT RATE 6 ML/HR AND GRINDER TENDER DOSE OF 4ML Q20MIN, REPORTS INDCATE PT HAS NOT ATTEMPTED GRINDER TENDER DOSE TODAY, RESERVOIR VOLUME 77ML REMAINING. PT WAKES EASILY AND DENIES COMPLAINTS. WILL CONT TO ASSESS.
[2021-01-31] VITALS (23 sets, daily range): BP systolic 97–143; BP diastolic 53–74; Ht 182.9 cm; Wt 108.2 kg
[2021-01-31 05:28] LABS: BASOPHILS 0.7 % (0-2); EOSINOPHILS 9.6 % (0-7); HEMOGLOBIN 9.9 g/dL (13.5-17.5); LYMPHOCYTES 22.7 % (15-50); MCH 33.1 pg (26.0-34.0); MCHC 34.3 g/dL (31.0-37.0); MCV 96.4 fL (80.0-100.0); MEAN PLATELET VOLUME 7.6 fL (7.4-10.4); MONOCYTES 10.5 % (2-11); NEUTROPHILS 56.5 % (40-80); PLATELET COUNT 268 10x3/uL (130-400); WBC 7.7 10x3/uL (4.8-10.8)
[2021-01-31 06:00] LABS: ALKALINE PHOSPHATASE 51 U/L (30-120); BILIRUBIN - TOTAL 0.52 mg/dL (0.2-1.3); CALC OSMOLALITY 273 mosm/kg (275-300); CALCIUM 8.2 mg/dL (8.5-10.1); CHLORIDE - SERUM 102 mmol/L (98-107); CREATININE - SERUM 0.9 mg/dL (0.6-1.3); GLUCOSE 113 mg/dL (74-106); MAGNESIUM - SERUM 1.8 mg/dL (1.8-2.4); POTASSIUM - SERUM 4.1 mmol/L (3.5-5.1); SODIUM 137 mmol/L (136-145); UREA NITROGEN 11 mg/dL (7-18); eGFR NON AFRICAN AMERICAN 88 mL/min (90-120)
[2021-01-31 06:03] LABS: ALT (SGPT) 18 U/L (10-68)
--- NOTE | 2021-01-31 09:32 | NUR ---
EPIDURAL DCD THIS AM. PT HERE.
--- NOTE | 2021-01-31 09:55 | NUR ---
OOB TO CHAIR WITH PT. SPO2 DROPS TO 80% PT SOB. O2 INC TO 5LNC. PT IN CHAIR. SPO2 BACK TO 95%. O2 TITRATED BACK DOWN. HR INCREASED TO 110 NSR WITH ACTIVITY.
--- NOTE | 2021-01-31 10:13 | NUR ---
Nutrition Follow-up: POD 5 VATS. Eating well. Diet: Diabetic PO intake: 75-100% Wt: 269# (01/31); 239.4# (01/26) Labs noted: Glu 113, Ca 8.2, Alb 2.0 Meds noted: Pepcid, KDur, Humalog, electrolyte protocol -RD will follow up in 2-5 days.
--- NOTE | 2021-01-31 13:20 | NUR ---
reported to job with cardiology that pt hr up and IS AFIB. NO NEW ORDERS AT PRESENT TIME.
[2021-02-01] VITALS (18 sets, daily range): BP systolic 106–142; BP diastolic 47–97
[2021-02-01 04:20] LABS: BASOPHILS 0.9 % (0-2); EOSINOPHILS 9.4 % (0-7); HEMATOCRIT 29.4 % (42.0-54.0); LYMPHOCYTES 20.6 % (15-50); MCH 32.9 pg (26.0-34.0); MCHC 34.2 g/dL (31.0-37.0); MCV 96.4 fL (80.0-100.0); MEAN PLATELET VOLUME 7.3 fL (7.4-10.4); MONOCYTES 12.9 % (2-11); NEUTROPHILS 56.2 % (40-80); PLATELET COUNT 287 10x3/uL (130-400); RBC 3.05 10x6/uL (4.20-6.10); RDW 13.8 % (11.5-14.5); WBC 7.9 10x3/uL (4.8-10.8)
[2021-02-01 04:45] LABS: ALKALINE PHOSPHATASE 56 U/L (30-120); ALT (SGPT) 17 U/L (10-68); BILIRUBIN - TOTAL 0.48 mg/dL (0.2-1.3); CALC OSMOLALITY 273 mosm/kg (275-300); CALCIUM 8.3 mg/dL (8.5-10.1); CHLORIDE - SERUM 102 mmol/L (98-107); CREATININE - SERUM 0.9 mg/dL (0.6-1.3); GLUCOSE 112 mg/dL (74-106); POTASSIUM - SERUM 4.1 mmol/L (3.5-5.1); PROTEIN - SERUM 5.8 g/dL (6.4-8.2); SODIUM 137 mmol/L (136-145); UREA NITROGEN 11 mg/dL (7-18); eGFR NON AFRICAN AMERICAN 88 mL/min (90-120)
--- NOTE | 2021-02-01 05:23 | NUR ---
PT LESS DROWSY CURRENT SHIFT OF CARE THEN PREVIOUS NIGHT. REPORTS HE SLEPT WELL, AWAKE AT THIS. HR CONTROLLED AT SR DURING NIGHT. PARTIAL BED BATH AND LINEN CHANGE AT APPROX 2130. R SC CVL DRESSING CHANGED AFTER BATH GIVEN. PT DENIES PAIN WITH EACH ASSESSMENT, APPEARS COMFORTABLE WHILE RESTING, PT REPORTS FEELING CONFUSED AT TIMES AND "NOT MY NORMAL SELF" UPON INITIAL ASSESSMENT, EDUCATED PT ON EFFECTS OF PAIN MEDS GIVEN IN EPIDUARAL AND ENCOURAGED TO ONLY TAKE PAIN MEDS WHEN PAIN IS DIFFICULT TO REST WITH OR TO TAKE DEEP BREATHS, TO ALLOW MENTAL CLARITY. PT AGREED AND REPORTS FEELING "MORE LIKE HIMSELF" THIS MORNING. AAOX4 AT THIS TIME. CALL LIGHT WITHIN REACH. +
--- NOTE | 2021-02-01 16:41 | NUR ---
PT TO ROOM FROM ICU. OXYGEN ON INITIAL VITALS WAS 54% ON 3 LITERS. BUMPED UP TO 9LNC AND WENT UP. AFTER CATCHING UP WAS ABLE TO WEAN BACK TO 5LNC. ENCOURAGED DEEP BREATHING AND IS. HR 66 NO OBVIOUS DISTRESS.
--- NOTE | 2021-02-01 19:30 | NUR ---
PT IN BED, AAO X 4, RESP EVEN AND UNLABORED NO DISTRESS NOTED, CL IN REACH, SR UP X 2.
[2021-02-02 01:14] VITALS: BP 120/60
[2021-02-02 01:33] VITALS: BP 124/63
--- NOTE | 2021-02-02 06:22 | NUR ---
I have reviewed this patient and I concur with the Shift Assessment completed by the Licensed Practical Nurse today this shift.
--- NOTE | 2021-02-02 06:30 | NUR ---
BEDSIDE REPORT RECIEVED. O2 AT 6L HF. RESP EVEN AND UNLABORED. IV TO R CVL SL.
[2021-02-02 06:41] VITALS: BP 124/60
--- NOTE | 2021-02-02 09:00 | NUR ---
PATIENT AWAKE ALERT AND ORIENTED. RESP EVEN AND UNLABORED ON 6L HF NASAL CANNULA. O2 SAT 99. HEART SOUNDS REG RATE AND RYTHYM. PATIENT PLEASANT. NO CURRENT PAIN OR DISTRESS. ABLE TO MAKE NEEDS KNOWN. LUNG SOUNDS WITH CRACKLES TO LOWER LOBES. BOWEL SOUNDS ACTIVE X 4 QUADS.
[2021-02-02 11:16] VITALS: BP 132/56
[2021-02-02 16:04] VITALS: BP 130/59
--- NOTE | 2021-02-02 19:59 | NUR ---
INITIAL ROUNDS AND ASSESSMENT COMPLETED. PT RESTING NO DISTRESS. CALL LIGHT IN REACH. SEE SHIFT ASSESSMENT.
[2021-02-02 20:00] VITALS: BP 135/65
--- NOTE | 2021-02-02 22:57 | NUR ---
ALL BEDTIME MEDS GIVEN. PT RESTING WITH NO DISTRESS. CALL LIGHT IN REACH. SR UP X 2.
[2021-02-03] VITALS: BP 132/62
[2021-02-03 04:00] VITALS: BP 128/65
--- NOTE | 2021-02-03 04:13 | NUR ---
PT RESTING WITH NO DISTRESS. EARLIER EPISODE OF LOW O2 SAT RESOLVED BY INCREASING O2 TO 7L/HFNC. PT'S O2 SAT AT THIS TIME IS 95%. SR PER TELEMETRY. CALL LIGHT IN REACH.
--- NOTE | 2021-02-03 06:30 | NUR ---
BEDSIDE REPORT RECEIVED. RESP EVEN AND UNLABORED ON 6L HF. IV TO LEFT SUBCLAVE. NO DISTRESS ASSESSED.
[2021-02-03 06:53] LABS: BASOPHILS 1.1 % (0-2); EOSINOPHILS 10.2 % (0-7); HEMATOCRIT 30.7 % (42.0-54.0); HEMOGLOBIN 10.4 g/dL (13.5-17.5); LYMPHOCYTES 18.7 % (15-50); MCH 32.2 pg (26.0-34.0); MCHC 33.9 g/dL (31.0-37.0); MCV 95.1 fL (80.0-100.0); MEAN PLATELET VOLUME 7.3 fL (7.4-10.4); RBC 3.22 10x6/uL (4.20-6.10); WBC 8.6 10x3/uL (4.8-10.8)
[2021-02-03 07:02] LABS: ALBUMIN 2.2 g/dL (3.4-5.0); ALKALINE PHOSPHATASE 59 U/L (30-120); ALT (SGPT) 26 U/L (10-68); BILIRUBIN - TOTAL 0.43 mg/dL (0.2-1.3); CALC OSMOLALITY 275 mosm/kg (275-300); CALCIUM 8.8 mg/dL (8.5-10.1); CARBON DIOXIDE 26.9 mmol/L (21.0-32.0); CHLORIDE - SERUM 103 mmol/L (98-107); GLUCOSE 126 mg/dL (74-106); POTASSIUM - SERUM 4.1 mmol/L (3.5-5.1); PROTEIN - SERUM 6.3 g/dL (6.4-8.2); SODIUM 137 mmol/L (136-145); UREA NITROGEN 13 mg/dL (7-18); eGFR NON AFRICAN AMERICAN 78 mL/min (90-120)
[2021-02-03 07:16] LABS: PLATELET COUNT 361 10x3/uL (130-400)
[2021-02-03 07:53] VITALS: BP 129/68
--- NOTE | 2021-02-03 09:30 | NUR ---
PATIENT AWAKE AND ALERT. NO CURRENT PAIN OR DISTRESS. RESP EVEN AND UNLABORED ON 6L HF. O2 SATS 98. LUNG SOUNDS WITH CRACKLES AND WHEEZING. IV TO RIGHT SUB CLAVE. TELE IN PLACE RUNNING SINUS RYTHYM. LINDQUIST DRAINING YELLOW URINE TO BAG ABDOMEN SOFT AND TENDER. BOWEL SOUNDS ACTIVE
[2021-02-03 11:40] VITALS: BP 125/66
[2021-02-03 15:39] VITALS: BP 126/64
--- NOTE | 2021-02-03 15:58 | NUR ---
I have reviewed this patient and I concur with the Shift Assessment completed by the Licensed Practical Nurse today this shift.
--- NOTE | 2021-02-03 19:39 | NUR ---
I have reviewed this patient and I concur with the Shift Assessment completed by the Licensed Practical Nurse today this shift.
[2021-02-03 20:00] VITALS: BP 120/48
[2021-02-04 01:59] VITALS: BP 121/57
[2021-02-04 06:10] VITALS: BP 125/63
[2021-02-04 06:30] LABS: BASOPHILS 1.2 % (0-2); EOSINOPHILS 8.8 % (0-7); HEMATOCRIT 30.9 % (42.0-54.0); HEMOGLOBIN 10.5 g/dL (13.5-17.5); LYMPHOCYTES 18.4 % (15-50); MCH 32.6 pg (26.0-34.0); MCV 95.8 fL (80.0-100.0); MEAN PLATELET VOLUME 7.2 fL (7.4-10.4); MONOCYTES 12.5 % (2-11); NEUTROPHILS 59.1 % (40-80); PLATELET COUNT 360 10x3/uL (130-400); RBC 3.23 10x6/uL (4.20-6.10); WBC 8.7 10x3/uL (4.8-10.8)
--- NOTE | 2021-02-04 06:50 | NUR ---
BEDSIDE REPORT RECEIVED PATIENT HAS BEEN LETHARGIC ALL NIGHT. O2 ON 7L HF. RESP EVEN AND UNLABORED. BUT SHALLOW. IV TO SUB CLAVE ON RIGHTSIDE.
[2021-02-04 07:58] LABS: ALBUMIN 2.3 g/dL (3.4-5.0); ALKALINE PHOSPHATASE 56 U/L (30-120); BILIRUBIN - TOTAL 0.42 mg/dL (0.2-1.3); CALC OSMOLALITY 277 mosm/kg (275-300); CALCIUM 8.9 mg/dL (8.5-10.1); CARBON DIOXIDE 29.7 mmol/L (21.0-32.0); CHLORIDE - SERUM 104 mmol/L (98-107); GLUCOSE 111 mg/dL (74-106); POTASSIUM - SERUM 4.2 mmol/L (3.5-5.1); PROTEIN - SERUM 6.4 g/dL (6.4-8.2); SODIUM 138 mmol/L (136-145); UREA NITROGEN 15 mg/dL (7-18); eGFR NON AFRICAN AMERICAN 78 mL/min (90-120)
[2021-02-04 08:01] LABS: ALT (SGPT) 17 U/L (10-68)
[2021-02-04 08:12] VITALS: BP 110/56
--- NOTE | 2021-02-04 08:17 | NUR ---
PATIENT AWAKE AND ALERT. AROUSED BY X RAY. SAT ON SIDE OF BED. THEN ENCOURAGED TO CHAIR SITTING UP IN CHAIR EATING BREAKFAST. LUNG SOUNDS WITH LOWER LOBE CRACKLES. RESP EVEN AND UNLABORED WITH NO SHORTNESS OF BREATH. SATS 99 ON 7L. IV TO RIGHT SUBCLAVE BROWN LUMEN PATENT. PATIENT SMILING EYES WIDE OPEN. LAUGHING. FAMILY AT BEDSIDE.
[2021-02-04 11:23] VITALS: BP 108/54
--- NOTE | 2021-02-04 14:19 | NUR ---
PATIENTS BROTHER CALLED REQUESTED ABGS TWICE A DAY TO CHECK CO2 LEVEL. IS CONCERNED THAT IS WHY HE IS SLEEPING. CONTACTED CHRISTIAN FOR POSSIBLE ABG ORDER.
--- NOTE | 2021-02-04 14:30 | NUR ---
WILL REPORT FAMILIES WISHES TO ONCOMING NURSE.
[2021-02-04 15:30] VITALS: BP 129/67
--- NOTE | 2021-02-04 15:42 | NUR ---
CONTACTED GINO, NEW ORDER FOR ABG GIVEN. CONTACTED RESP WITH ORDER.
--- NOTE | 2021-02-04 17:31 | NUR ---
I have reviewed this patient and I concur with the Shift Assessment completed by the Licensed Practical Nurse today this shift.
[2021-02-04 20:43] VITALS: BP 125/60
[2021-02-05 00:10] VITALS: BP 122/63
[2021-02-05 04:47] VITALS: BP 124/61
[2021-02-05 05:35] LABS: BASOPHILS 0.7 % (0-2); EOSINOPHILS 10.6 % (0-7); HEMATOCRIT 31.5 % (42.0-54.0); HEMOGLOBIN 10.4 g/dL (13.5-17.5); LYMPHOCYTES 22.3 % (15-50); MCH 31.6 pg (26.0-34.0); MCHC 33.1 g/dL (31.0-37.0); MCV 95.5 fL (80.0-100.0); MEAN PLATELET VOLUME 7.5 fL (7.4-10.4); MONOCYTES 11.5 % (2-11); NEUTROPHILS 54.9 % (40-80); PLATELET COUNT 356 10x3/uL (130-400); RDW 14.2 % (11.5-14.5); WBC 8.4 10x3/uL (4.8-10.8)
[2021-02-05 05:48] LABS: ALBUMIN 2.2 g/dL (3.4-5.0); ANION GAP 7.9 mmol/L (8-16); BILIRUBIN - TOTAL 0.44 mg/dL (0.2-1.3); CALCIUM 8.5 mg/dL (8.5-10.1); CARBON DIOXIDE 31.9 mmol/L (21.0-32.0); CREATININE - SERUM 1.2 mg/dL (0.6-1.3); POTASSIUM - SERUM 3.8 mmol/L (3.5-5.1); PROTEIN - SERUM 6.4 g/dL (6.4-8.2)
[2021-02-05 08:06] VITALS: BP 111/56
[2021-02-05 11:06] VITALS: BP 104/53
--- NOTE | 2021-02-05 13:24 | NUR ---
Nutrition Reassessment/Follow-up: POD 10 VATS. Sitting up in chair eating breakfast at time of visit this AM. Denies N/V, chewing/swallowing difficulty. Reports no BM since surgery; +flatus. Diet: Diabetic Wt: 269# (02/01) Labs noted: Glu 110, Alb 2.2 Meds noted: Lasix, KDur, Pepcid Nutrition Intervention/Recommendations: -Nutrition needs, Dx, & goals unchanged since initial assessment. -Encourage PO intake and honor food preferences within diet restrictions. -Need new wt. -Pt may benefit from bowel regimen; reports no BM since surgery. -RD will follow up within 3-4 days.
--- NOTE | 2021-02-05 13:30 | NUR ---
MRI BRAIN ORDERED. UPON SCREENING PATIENT IT WAS DISCOVERED THAT HE HAS A PENILE IMPLANT WHICH HE HAS NO INFORMATION ON. HE COULD NOT TELL US THE DOCTOR OR THE HOSPITAL WHERE HE HAD THE SURGERY. SPOKE WITH THE RADIOLOGIST, DR DANIEL, AND HE TOLD US WE CAN NOT DO THE MRI WITHOUT THAT SOME ARE SAFE AND SOME ARE NOT. WE SPOKE WITH JUJU LOW AND SHE HAD US PUT AN ORDER IN FOR A CT HEAD WITH/WITHOUT CONTRAST INSTEAD. CRUZITO HIS NURSE WAS ALSO NOTIFIED OF THIS CHANGE. MRI WILL BE CANCELLED AND THE CT WILL BE ORDERED AT THIS TIME.
[2021-02-05 15:49] VITALS: BP 111/57
--- NOTE | 2021-02-05 20:44 | NUR ---
HS MEDS GIVEN WITH FRESH ICE WATER. PT DENIES PAIN AT THIS TIME. CLEANED OFF OVER BED TABLE AT PTS REQUEST. BED LOW, CL IN REACH. NO OTHER NEEDS EXPRESSED AT THIS TIME.
[2021-02-05 21:59] VITALS: BP 99/53
--- NOTE | 2021-02-05 22:08 | NUR ---
CL ANSWERED, PT PULLED UP AND REPOSITIONED IN BED FOR COMFORT. BED LOW. SR UP X2, CL IN REACH.
[2021-02-06 00:17] VITALS: BP 129/57
--- NOTE | 2021-02-06 03:33 | NUR ---
I have reviewed this patient and I concur with the Shift Assessment completed by the Licensed Practical Nurse today this shift.
[2021-02-06 04:39] LABS: BASOPHILS 0.6 % (0-2); EOSINOPHILS 11.2 % (0-7); HEMATOCRIT 31.6 % (42.0-54.0); HEMOGLOBIN 10.6 g/dL (13.5-17.5); LYMPHOCYTES 20.6 % (15-50); MCHC 33.7 g/dL (31.0-37.0); MEAN PLATELET VOLUME 7.3 fL (7.4-10.4); MONOCYTES 11.9 % (2-11); NEUTROPHILS 55.7 % (40-80); PLATELET COUNT 359 10x3/uL (130-400); RBC 3.32 10x6/uL (4.20-6.10); RDW 14.2 % (11.5-14.5); WBC 7.7 10x3/uL (4.8-10.8)
[2021-02-06 05:02] LABS: ALBUMIN 2.4 g/dL (3.4-5.0); ANION GAP 9.6 mmol/L (8-16); BILIRUBIN - TOTAL 0.43 mg/dL (0.2-1.3); CALCIUM 8.7 mg/dL (8.5-10.1); CARBON DIOXIDE 31.1 mmol/L (21.0-32.0); CREATININE - SERUM 1.1 mg/dL (0.6-1.3); MAGNESIUM - SERUM 1.9 mg/dL (1.8-2.4); POTASSIUM - SERUM 3.7 mmol/L (3.5-5.1); PROTEIN - SERUM 6.6 g/dL (6.4-8.2)
[2021-02-06 05:46] VITALS: BP 166/84
--- NOTE | 2021-02-06 09:00 | NUR ---
LINDQUIST CATH DC AND CONDOM CATH PLACED.
[2021-02-06 09:20] VITALS: BP 123/64
--- NOTE | 2021-02-06 12:10 | NUR ---
REHAB PRESCREENING Rehab referral received and chart reviewed. This patient is a good candidate for rehab. He is currently on 5 lpm high flow nc. He needs to be stable at 4 lpm to come to rehab. We will continue to watch for OT evaluation and decreased oxygen requirement in order to submit for authorization. Thank you for this referral! Migdalia Covington, GAME PROGRAMMER Rehab PD
[2021-02-06 12:53] VITALS: BP 135/72
[2021-02-06 16:45] VITALS: BP 125/67
[2021-02-06 20:45] VITALS: BP 121/64
--- NOTE | 2021-02-06 22:19 | NUR ---
COOKER CASING AT BED SIDE BATH GIVEN.
[2021-02-07 00:52] VITALS: BP 139/58
--- NOTE | 2021-02-07 02:34 | NUR ---
I have reviewed this patient and I concur with the Shift Assessment completed by the Licensed Practical Nurse today this shift.
[2021-02-07 04:48] LABS: BASOPHILS 0.6 % (0-2); EOSINOPHILS 12.3 % (0-7); HEMATOCRIT 31.5 % (42.0-54.0); HEMOGLOBIN 10.5 g/dL (13.5-17.5); LYMPHOCYTES 25.4 % (15-50); MCH 31.8 pg (26.0-34.0); MCHC 33.5 g/dL (31.0-37.0); MCV 94.9 fL (80.0-100.0); MEAN PLATELET VOLUME 7.4 fL (7.4-10.4); NEUTROPHILS 49.7 % (40-80); PLATELET COUNT 356 10x3/uL (130-400); RBC 3.32 10x6/uL (4.20-6.10); WBC 7.7 10x3/uL (4.8-10.8)
[2021-02-07 05:10] LABS: ALBUMIN 2.4 g/dL (3.4-5.0); ANION GAP 5.6 mmol/L (8-16); BILIRUBIN - TOTAL 0.38 mg/dL (0.2-1.3); CALCIUM 8.6 mg/dL (8.5-10.1); CARBON DIOXIDE 32.4 mmol/L (21.0-32.0); CREATININE - SERUM 1.1 mg/dL (0.6-1.3); MAGNESIUM - SERUM 2.1 mg/dL (1.8-2.4); PROTEIN - SERUM 6.6 g/dL (6.4-8.2); URIC ACID 4.9 mg/dL (2.6-7.2)
[2021-02-07 05:20] VITALS: BP 145/39
[2021-02-07 09:00] VITALS: BP 115/57
--- NOTE | 2021-02-07 12:32 | NUR ---
OT NOTE: PT DOING BETTER TODAY. LESS CONFUSION NOTED. BED MOB WITH MOD/MAX ASSIST WITH SUPINE TO SIT; 02 AT 4L; ABLE TO AMB IN ROOM WITH WALKER WITH MIN/MOD ASSIST X 2 AND ASSIST FOR EQUIP MGMT. REQUIRED MAX ASSIST TO VERONIQUE SOCKS; TOLERATED EOB SITTING FOR SEVERAL MIN UNSUPPORTED; TRANSFERRED UP TO CHAIR WITH MOD ASSIST; SET UP FOR WASHING HANDS WITH WASHCLOTH. DARIANA LIVINGSTON, OTR/L 900
[2021-02-08 00:13] VITALS: BP 110/52
[2021-02-08 03:05] VITALS: BP 121/57
--- NOTE | 2021-02-08 04:04 | NUR ---
I have reviewed this patient and I concur with the Shift Assessment completed by the Licensed Practical Nurse today this shift.
[2021-02-08 05:20] VITALS: BP 124/61
[2021-02-08 06:28] LABS: ALBUMIN 2.4 g/dL (3.4-5.0); ANION GAP 10.1 mmol/L (8-16); BILIRUBIN - TOTAL 0.38 mg/dL (0.2-1.3); CALCIUM 8.6 mg/dL (8.5-10.1); CARBON DIOXIDE 27.9 mmol/L (21.0-32.0); CREATININE - SERUM 1.1 mg/dL (0.6-1.3); PROTEIN - SERUM 6.6 g/dL (6.4-8.2)
[2021-02-08 06:32] LABS: BASOPHILS 0.7 % (0-2); EOSINOPHILS 10.1 % (0-7); HEMATOCRIT 31.8 % (42.0-54.0); HEMOGLOBIN 10.6 g/dL (13.5-17.5); LYMPHOCYTES 23.7 % (15-50); MCH 31.5 pg (26.0-34.0); MCHC 33.3 g/dL (31.0-37.0); MCV 94.8 fL (80.0-100.0); MEAN PLATELET VOLUME 7.3 fL (7.4-10.4); MONOCYTES 9.9 % (2-11); NEUTROPHILS 55.6 % (40-80); PLATELET COUNT 372 10x3/uL (130-400); RBC 3.36 10x6/uL (4.20-6.10); WBC 8.4 10x3/uL (4.8-10.8)
--- NOTE | 2021-02-08 06:50 | NUR ---
BEDSIDE RECEIVED. RESP EVEN AND UNLABORED. O2 2.5L VIA NASAL CANNULA. SAT 99 NO CURRENT PAIN OR DISTRESS. PORT TO RIGHT SUBCLAVE PATENT.
[2021-02-08 08:13] VITALS: BP 134/65
--- NOTE | 2021-02-08 08:49 | NUR ---
AFTER LOOKING AT PATIENTS CHART TODAY, HE STILL LOOKS TO ACUTE TO SUBMIT FOR INPATIENT REHAB AUTH. WE WILL CONTINUE TO FOLLOW. I HAVE DISCUSSED THIS WITH ALEX SMALLWOOD CM. OPAL HARO RN CLINICAL LIAISON, INPATIENT REHAB.
--- NOTE | 2021-02-08 09:30 | NUR ---
PATIENT AWAKE AND ALERT. NO CURRENT PAIN OR DISTRESS. RESP EVEN AND UNLABORED ON 2.5L VIA NASAL CANNULA. HEART SOUNDS REGULAR RATE AND RYTHYM. LUNGS SOUNDS DIMINISHED IN LOWER LOBES. AIR MOVEMENT HEARD IN UPPER AND MID LOBES. ABDOMEN SOFT AND TENDER. BOWEL SOUNDS ACTIVE.
--- NOTE | 2021-02-08 12:11 | NUR ---
Nutrition Follow-up: Pt reports decreased appetite this AM; <50% of breakfast eaten. Likes Glucerna. Denies N/V, chewing/swallowing difficulty. Diet: Diabetic WT: 238# (02/08); 239.4# (01/26) Last BM: 02/08 Labs noted: Glu 120, Alb 2.4 Meds noted: Pepcid, KDur, Humalog, electrolyte protocol -Encourage PO intake and honor food preferences within diet restrictions. -+Glucerna with meals. -Monitor wt. -RD will follow up within 4-5 days.
[2021-02-08 13:02] VITALS: BP 116/65
[2021-02-08] MEDS ORDERED: PERFOROMIS20 MCG/21 INH (15:23)
[2021-02-08] MEDS ORDERED: INDOCIN-SR75 MG PO (15:24)
[2021-02-08] MEDS ORDERED: ATROVENT 0.02%2.5 ML UPD (15:24)
[2021-02-08] MEDS ORDERED: K-DUR20 MEQ PO (15:24)
[2021-02-08] MEDS ORDERED: ACETAMINOPHEN325 MG PO (15:24)
[2021-02-08] MEDS ORDERED: NICODERM CQ1 EAC2 TRANSDERM (15:24)
[2021-02-08] MEDS ORDERED: MUPIROCIN22 GM NASAL (15:25)
[2021-02-08] MEDS ORDERED: PULMICORT0.5 MG/21 UPD (15:25)
[2021-02-08] MEDS ORDERED: HUMALOG 30100 UNITS/ SC (15:25)
[2021-02-08] MEDS ORDERED: TESSALON PERLE100 MG PO (15:25)
[2021-02-08] MEDS ORDERED: MIRALAX17 GM PO (15:25)
[2021-02-08] MEDS ORDERED: MUCINEX DM ER1 EAC1 PO (15:25)
[2021-02-08] MEDS ORDERED: PEPCID PO (15:26)
[2021-02-08] MEDS ORDERED: ZOFRAN INJ IV (15:26)
--- NOTE | 2021-02-08 16:15 | MORECARE ---
CASE MANAGEMENT DISCHARGE SUMMARY PATIENT: AMARA YEN UNIT: [id number] ADM DATE: 01/26/21 AGE: 70 : 48 SEX: M ROOM/BED: D.2127 AUTHOR: VIC,DOC PHYSICIAN: REFERRING PHYSICIAN: TRISTON CROWE MD DATE OF SERVICE: 02/08/21 Case Management Discharge Planning Summary DCP REVIEW SUMMARY ANTICIPATED D/C DATE: 02/08/2021 EXPECTED LOS : 13 CASE STATUS: DCP Initiated INITIAL REVIEW: 01/26/2021 INITIAL REVIEWER: Chyna Horowitz FINAL DISCHARGE DISPOSITION: 62 : Discharged/Trans to IP Rehab Facility Including Distinct Units of a Hospital FINAL REVIEWER: FINAL REVIEW DATE: DCP [facility] Questions & Answers QUESTION: ANSWER : PATIENT: AMARA YEN ENCOUNTER: [id number] MEDICAL RECORD#: [id number] ADMISSION DATE: 01/26/2021 DISCHARGE DATE: ATTENDING MD: TRISTON LIMA : AGE: 70 MARITAL STATUS: S DC PLAN ID: [id number] FACILITY: [facility] PRINTED ON: 02/08/21 16:14 CT All edits/amendments must be made on the electronic document DICTATION DATE: 02/08/211613 AIRCRAFT MACHINIST HELPER: ZAHIRA 02/08/211613 RPT#: [id number] DC DATE: STATUS: ADM IN [facility] [address] [place] [address] END OF REPORT
[2021-02-08 16:17] VITALS: BP 113/57
--- NOTE | 2021-02-08 19:24 | MORECARE ---
CASE MANAGEMENT DISCHARGE SUMMARY PATIENT: AMARA YEN UNIT: [id number] ADM DATE: 01/26/21 AGE: 70 : 48 SEX: M ROOM/BED: D.2127 AUTHOR: VIC,DOC PHYSICIAN: REFERRING PHYSICIAN: TRISTON CROWE MD DATE OF SERVICE: 02/08/21 Case Management Discharge Planning Summary DCP REVIEW SUMMARY ANTICIPATED D/C DATE: 02/08/2021 EXPECTED LOS : 13 CASE STATUS: DCP Initiated INITIAL REVIEW: 01/26/2021 INITIAL REVIEWER: Chyna Horowitz FINAL DISCHARGE DISPOSITION: 62 : Discharged/Trans to IP Rehab Facility Including Distinct Units of a Hospital FINAL REVIEWER: FINAL REVIEW DATE: DCP [facility] Questions & Answers QUESTION: ANSWER : PATIENT: AMARA YEN ENCOUNTER: [id number] MEDICAL RECORD#: [id number] ADMISSION DATE: 01/26/2021 DISCHARGE DATE: 02/08/2021 ATTENDING MD: TRISTON LIMA : AGE: 70 MARITAL STATUS: S DC PLAN ID: [id number] FACILITY: [facility] PRINTED ON: 02/08/21 19:24 CT All edits/amendments must be made on the electronic document DICTATION DATE: 02/08/211923 LUMBER PULLER: ZAHIRA 02/08/211923 RPT#: [id number] DC DATE:02/08/21 STATUS: DIS IN [facility] [address] [place] [address] END OF REPORT
--- NOTE | 2021-02-08 22:38 | NUR ---
OT NOTE: PT REQUIRED CGA FOR SUPINE TO SIT. PT IS WEAK AND LIGHT HEADED. NURSING AWARE. PT COMPLETED ADL MOBILITY. PT REQUIRED MAX A FOR LB HYGIENE SECONDARY TO BM. PT REQUIRED SETUP FOR UB HYGIENE TASKS. PT REQUIRED MIN A FOR VERONIQUE SOCKS. [phone] THANK YOU,SACHIN JEFFRIES
--- NOTE | 2021-02-11 17:36 | MORECARE ---
CASE MANAGEMENT DISCHARGE SUMMARY PATIENT: AMARA YEN UNIT: [id number] ADM DATE: 01/26/21 AGE: 70 : 48 SEX: M ROOM/BED: D.2127 AUTHOR: VIC,DOC PHYSICIAN: REFERRING PHYSICIAN: TRISTON CROWE MD DATE OF SERVICE: 02/11/21 Case Management Discharge Planning Summary DCP REVIEW SUMMARY ANTICIPATED D/C DATE: 02/08/2021 EXPECTED LOS : 13 CASE STATUS: DCP Initiated INITIAL REVIEW: 01/26/2021 INITIAL REVIEWER: Chyna Horowitz FINAL DISCHARGE DISPOSITION: 62 : Discharged/Trans to IP Rehab Facility Including Distinct Units of a Hospital FINAL REVIEWER: FINAL REVIEW DATE: DCP [facility] Questions & Answers QUESTION: ANSWER : PATIENT: AMARA YEN ENCOUNTER: [id number] MEDICAL RECORD#: [id number] ADMISSION DATE: 01/26/2021 DISCHARGE DATE: 02/08/2021 ATTENDING MD: TRISTON LIMA : AGE: 70 MARITAL STATUS: S DC PLAN ID: [id number] FACILITY: [facility] PRINTED ON: 02/11/21 17:36 CT All edits/amendments must be made on the electronic document DICTATION DATE: 02/11/211735 SPECIAL CRIMES INVESTIGATOR: ZAHIRA 02/11/211735 RPT#: [id number] DC DATE:02/08/21 STATUS: DIS IN [facility] [address] [place] [address] END OF REPORT
== END 2021-02-08 19:19 | DRG 163 ==
LOC: D.ER 10:12 → D.CVICU 13:59 → D.EDHOLD 13:59 → D.CVICU 20:32 → D.M2 02-01 15:45
PROVIDERS: Emergency Medicine; Family Medicine; Thoracic Surgery (Cardiothoracic Vascular Surgery); ADMIT Emergency Medicine; ATTEND Emergency Medicine
PROC: 0BBF4ZZ Excision of Right Lower Lung Lobe, Percutaneous Endoscopic Approach (ICD-10-PCS; 2021-01-26)
PROC: 0BBD4ZZ Excision of Right Middle Lung Lobe, Percutaneous Endoscopic Approach (ICD-10-PCS; 2021-01-26)
PROC: 0BNN0ZZ Release Right Pleura, Open Approach (ICD-10-PCS; 2021-01-26)
PROC: 0BNK4ZZ Release Right Lung, Percutaneous Endoscopic Approach (ICD-10-PCS; principal; 2021-01-26 15:00)
DX: J43.0 Unilateral pulmonary emphysema [MacLeod's syndrome] (principal); J96.00 Acute respiratory failure, unspecified whether with hypoxia or hypercapnia; J93.12 Secondary spontaneous pneumothorax; J84.9 Interstitial pulmonary disease, unspecified; J93.82 Other air leak; J94.8 Other specified pleural conditions; I10 Essential (primary) hypertension; C76.0 Malignant neoplasm of head, face and neck; F17.200 Nicotine dependence, unspecified, uncomplicated; E11.65 Type 2 diabetes mellitus with hyperglycemia; Z79.4 Long term (current) use of insulin; T60.9 Toxic effect of unspecified pesticide; J68.9 Unspecified respiratory condition due to chemicals, gases, fumes and vapors; J84.10 Pulmonary fibrosis, unspecified; E11.21 Type 2 diabetes mellitus with diabetic nephropathy; I48.91 Unspecified atrial fibrillation; E78.5 Hyperlipidemia, unspecified; J30.9 Allergic rhinitis, unspecified; N40.0 Benign prostatic hyperplasia without lower urinary tract symptoms; E83.42 Hypomagnesemia; E83.39 Other disorders of phosphorus metabolism; D64.9 Anemia, unspecified; G72.9 Myopathy, unspecified

== ENCOUNTER 2021-02-08 19:15 | Inpatient (IN) | payer MEDICARE ==
[~2021-02-08] VITALS: Ht 182.9 cm; Wt 108.4 kg
[~2021-02-08 19:15] MED LIST changes: +ACETAMINOPHEN325 MG PO; +ATROVENT 0.02%2.5 ML UPD; +HUMALOG 30100 UNITS/ SC; +INDOCIN-SR75 MG PO; +K-DUR20 MEQ PO; +MIRALAX17 GM PO; +MUCINEX DM ER1 EAC1 PO; +MUPIROCIN22 GM NASAL; +NICODERM CQ1 EAC2 TRANSDERM; +PAXIL20 MG PO; +PEPCID PO; +PERFOROMIS20 MCG/21 INH; +PULMICORT0.5 MG/21 UPD; +TESSALON PERLE100 MG PO; +ZOFRAN INJ IV
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
[2021-02-08 22:08] VITALS: BP 137/71
--- NOTE | 2021-02-08 23:50 | NUR ---
RIGHT SUBCLAVIAN CVL DRESSING REMOVED PER PROTOCOL. CLEANSED CVL USING STERILE TECHNIQUE. CVL IS STITCHED IN PLACE WITH 2 SUTURES. BIOPATCH PLACED AT INSERTION SITE, COVERED WITH DRESSING AND SECURED LUMENS WITH DRESSING. DATE, TIMED, AND INITIALED DRESSING. PT TOLERATED WELL. RIGHT LATERAL SIDE OLD CHEST TUBE SITE CLEANSED WITH WOUND CLEANSER, PAT DRY 4X4, COVERED WITH 2X2 ISLAND DRESSING. DATE, TIMED, INITIALED.
--- NOTE | 2021-02-09 02:20 | NUR ---
PT LYING IN BED SUPINE EYES CLOSED RESTING. RR EVEN AND UNLABORED. CHASE ALARM ON
[2021-02-09 04:11] VITALS: BP 137/71; BMI 32.5
--- NOTE | 2021-02-09 05:49 | NUR ---
PT LYING IN BED SUPINE EYES CLOSED RESTING. RR EVEN AND UNLABORED. CONTINUES ON O2/3L VIA NC. NO ACUTE CHANGES IN CONDITION THIS SHIFT. CALL LIGHT AND WATER WITHIN REACH. CHASE ALARM ON.
[2021-02-09 07:16] LABS: BASOPHILS 0.9 % (0-2); EOSINOPHILS 10.5 % (0-7); HEMATOCRIT 31.4 % (42.0-54.0); HEMOGLOBIN 10.7 g/dL (13.5-17.5); LYMPHOCYTES 30.6 % (15-50); MCH 31.8 pg (26.0-34.0); MCV 93.4 fL (80.0-100.0); MEAN PLATELET VOLUME 7.3 fL (7.4-10.4); MONOCYTES 8.6 % (2-11); NEUTROPHILS 49.4 % (40-80); PLATELET COUNT 387 10x3/uL (130-400); RBC 3.36 10x6/uL (4.20-6.10); WBC 7.7 10x3/uL (4.8-10.8)
[2021-02-09 07:19] LABS: CALCIUM 8.7 mg/dL (8.5-10.1); CARBON DIOXIDE 26.3 mmol/L (21.0-32.0); CREATININE - SERUM 1.2 mg/dL (0.6-1.3); POTASSIUM - SERUM 4.3 mmol/L (3.5-5.1)
[2021-02-09 07:42] VITALS: Ht 182.9 cm; Wt 108.4 kg
[2021-02-09 08:28] VITALS: BP 127/66
--- NOTE | 2021-02-09 18:19 | NUR ---
PT RESTING IN BED WITH EYES OPEN CALL LIGHT IN REACH WILL MONITER
--- NOTE | 2021-02-09 18:52 | NUR ---
BEDSIDE REPORT COMPLETE. RECEIVED PT LYING IN BED ALERT AND ORIENTED X4. RIGHT SUBCLAVIAN CVL PATENT. DRESSING C/D/I. TELEMETRY D/C. CONDOM CATH INTACT. CALL LIGHT AND WATER WITHIN REACH. BED ALARM ON. CPOC
[2021-02-09 22:07] VITALS: BP 129/65
--- NOTE | 2021-02-10 03:13 | NUR ---
PT LYING IN BED EYES CLOSED RESTING. RR EVEN AND UNLABORED CHASE ALARM ON
[2021-02-10 07:00] VITALS: BP 127/67
--- NOTE | 2021-02-10 08:44 | NUR ---
HE IS SETTING UP IN BED. WEARING 2 LITERS HIGH FLOW. HE TOOK HIS MEDICATIONS WITHOUT ANY PROBLEMS. HE HAS MANDEEP TO HIS RIGHT CHEST/BREAST AREA. HE HAS A RIGHT CENTRAL LINE. THE CALL LIGHT IS WITHIN REACH AND THE BED ALARM IS ON.
[2021-02-10 19:00] VITALS: BP 172/93
--- NOTE | 2021-02-10 20:09 | NUR ---
RESTING IN BED, NO DISTRESS NOTED, O2 PER NC, CONT TO MONITOR SOB, CENTRAL LINE CLEAN AND DRY, CONT TO MONITOR
[2021-02-11 07:00] VITALS: BP 132/70
--- NOTE | 2021-02-11 08:14 | NUR ---
HE IS SETTING UP IN THE BED EATING BREAKFAST. WEARING 2 LITERS NC HIGH FLOW. THE CALL LIGHT IS WITHIN REACH AND THE BED ALARM IS ON.
[2021-02-11 19:00] VITALS: BP 142/74
--- NOTE | 2021-02-11 20:48 | NUR ---
RESTING IN BED, NO DISTRESS NOTED, O2 PER NC, TAKES PO MEDS WITH EASE, MANDEEP TO R CHEST INTACT, C/O PAIN TODAY, CONT TO MONITOR
[2021-02-12 06:57] LABS: BASOPHILS 0.8 % (0-2); EOSINOPHILS 15.2 % (0-7); HEMATOCRIT 33.3 % (42.0-54.0); HEMOGLOBIN 11.2 g/dL (13.5-17.5); LYMPHOCYTES 23.5 % (15-50); MCH 31.5 pg (26.0-34.0); MCHC 33.6 g/dL (31.0-37.0); MCV 93.7 fL (80.0-100.0); MEAN PLATELET VOLUME 7.4 fL (7.4-10.4); MONOCYTES 9.1 % (2-11); NEUTROPHILS 51.4 % (40-80); PLATELET COUNT 381 10x3/uL (130-400); RBC 3.55 10x6/uL (4.20-6.10); RDW 13.9 % (11.5-14.5); WBC 9.2 10x3/uL (4.8-10.8)
[2021-02-12 06:59] LABS: ANION GAP 10.3 mmol/L (8-16); CALCIUM 8.5 mg/dL (8.5-10.1); CARBON DIOXIDE 26.9 mmol/L (21.0-32.0); CREATININE - SERUM 1.4 mg/dL (0.6-1.3); POTASSIUM - SERUM 5.2 mmol/L (3.5-5.1)
--- NOTE | 2021-02-12 07:35 | NUR ---
PT RESTING IN BED WITH EYES OPEN CALL LIGHT IN REACH WILL MONITER
[2021-02-12 08:11] VITALS: BP 109/52
--- NOTE | 2021-02-12 15:24 | NUR ---
CVL DC'D WITH CATHETER TIP INTACT. PRESSURE APPLIED FOR 15 MINUTES. OCCULISIVE DSG APPLIED.
--- NOTE | 2021-02-12 18:10 | NUR ---
PT RESTING IN BED WITH EYES OPEN CALL LIGHT IN REACH WILL MONITER
--- NOTE | 2021-02-12 19:03 | NUR ---
BEDSIDE REPORT COMPLETE. RECEIVED PT LYING IN BED EYES CLOSED RESTING. EASILY AROUSED WITH STIMULI. ALERT AND ORIENTED X4. DENIES ANY NEEDS OR PAIN. CONTINUES ON 2L/O2 VIA NC. RIGHT SUBCLAVIAN REMOVED PRESSURE DRESSING INTACT WITH SMALL AMOUNT OF BLOOD NOTED ON DRESSING. RIGHT HERMAN MANDEEP INTACT BUSINESS MANAGEMENT ASSOCIATE. REDNESS AND DRY SCABS OVER RIGHT BREAST NOTED. RIGHT LATERAL SIDE OLD CHEST TUBE SITE DRESSING INTACT. URINAL WITHIN REACH. NO DISTRESS NOTED. CALL LIGHT AND WATER WITHIN REACH. CHASE ALARM ON. CPOC
[2021-02-12 20:40] VITALS: BP 137/68
--- NOTE | 2021-02-13 03:31 | NUR ---
PT LYING IN BED SUPINE EYES CLOSED RESTING. RR EVEN AND UNLABORED. CHASE ALARM ON
--- NOTE | 2021-02-13 05:58 | NUR ---
PT LYING IN BED EYES CLOSED RESTING. EASILY AROUSED WITH STIMULI. NO DISTRESS NOTED. FSBS 138. NO ACUTE CHANGES IN CONDITION THIS SHIFT. CALL LIGHT AND URINAL WITHIN REACH. CHASE ALARM ON
[2021-02-13 07:18] LABS: ANION GAP 10.7 mmol/L (8-16); CALCIUM 8.4 mg/dL (8.5-10.1); CARBON DIOXIDE 27.2 mmol/L (21.0-32.0); CREATININE - SERUM 1.3 mg/dL (0.6-1.3); POTASSIUM - SERUM 4.9 mmol/L (3.5-5.1)
--- NOTE | 2021-02-13 08:00 | NUR ---
PT RESTING IN BED WITH EYES OPEN CALL LIGHT IN REACH WILL MONITER
[2021-02-13 08:08] VITALS: BP 110/72
--- NOTE | 2021-02-13 14:22 | NUR ---
Nutrition Re-Assessment Diet: Diabetic + Glucerna with meals PO intake: 75-100% x all meals, also drinking Glucerna with meals Last BM: 02/07/21 Wt: 239# (02/09/21) Meds noted: kdur, miralax, SSI Labs noted: Glu 118(H), POC Glu 132(H) Estimated nutrition needs: 2024-2425kcal (25-30kcal/kg IBW), 80-100gms protein (1-1.2gms/kg), 2025-2425mL fluid (or per MD) Nutrition diagnosis: Inadequate oral intake r/t weakness AEB noted PO intake 50% of meals or less on acute floor. - IMPROVED Nutrition goals: -PO intake =/>75% meals -Meet fluid needs -Dry weight stable -Blood glucose to trend at or near WNL Recommendations/Interventions: -Recommend continue current diet. Will continue to honor food preferences within diet restrictions. -RD will follow-up within 7 days.
--- NOTE | 2021-02-13 18:49 | NUR ---
PT RESTING IN BED WITH EYES OPEN CALL LIGHT IN REACH WILL MONITER
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
[2021-02-13 20:36] VITALS: BP 129/62
--- NOTE | 2021-02-14 02:33 | NUR ---
PT LYING IN BED EYES CLOSED RESTING. RR EVEN AND UNLABORED. CONTINUES ON O2/2L VIA NC. CHASE ALARM ON
--- NOTE | 2021-02-14 06:17 | NUR ---
PT LYING IN BED SUPINE AWAKE. DENIES ANY NEEDS OR PAIN. NO DISTRESS NOTED. CHASE ALARM ON
[2021-02-14 06:32] LABS: ANION GAP 8.5 mmol/L (8-16); CALCIUM 8.4 mg/dL (8.5-10.1); CARBON DIOXIDE 28.1 mmol/L (21.0-32.0); CREATININE - SERUM 1.4 mg/dL (0.6-1.3); POTASSIUM - SERUM 4.6 mmol/L (3.5-5.1)
[2021-02-14 06:51] LABS: BASOPHILS 1.1 % (0-2); EOSINOPHILS 19.4 % (0-7); HEMATOCRIT 32.2 % (42.0-54.0); HEMOGLOBIN 10.8 g/dL (13.5-17.5); LYMPHOCYTES 27.1 % (15-50); MCH 31.6 pg (26.0-34.0); MCHC 33.5 g/dL (31.0-37.0); MCV 94.5 fL (80.0-100.0); MEAN PLATELET VOLUME 7.4 fL (7.4-10.4); MONOCYTES 10.8 % (2-11); NEUTROPHILS 41.6 % (40-80); PLATELET COUNT 344 10x3/uL (130-400); RDW 14.3 % (11.5-14.5); WBC 7.6 10x3/uL (4.8-10.8)
[2021-02-14 07:00] VITALS: BP 187/70
[2021-02-14 08:00] VITALS: BP 187/70
--- NOTE | 2021-02-14 15:52 | NUR ---
CLINICAL UPDATES FAXED TO [facility] , AUTH. # [id number] REQUESTING MORE DAYS. WILL CONTINUE TO FOLLOW WITH PATIENT.
--- NOTE | 2021-02-14 18:54 | NUR ---
BEDSIDE REPORT COMPLETE. RECEIVED PT SITTING UP IN BED. ALERT AND ORIENTED X4. NO DISTRESS NOTED. DENIES ANY PAIN OR NEEDS. CONTINUES ON O2/2L VIA NC. RIGHT HERMAN INCISION WITH MANDEEP INTACT. RIGHT SIDE LATERAL DRESSING INTACT. CALL LIGHT, URINAL, AND WATER WITHIN REACH. CHASE ALARM ON. CPOC
[2021-02-14 21:31] VITALS: BP 141/72
--- NOTE | 2021-02-15 03:32 | NUR ---
PT LYING IN BED SUPINE EYES CLOSED RESTING. RR EVEN AND UNLABORED. CHASE ALARM ON
[2021-02-15 05:58] VITALS: BP 138/71
--- NOTE | 2021-02-15 08:20 | NUR ---
HE IS SETTING UP IN THE BED FOR BREAKFAST. HE TOOK HIS MEDICAITONS WITHOUT ANY PROBLEMS. HIS 02 DROPPED WHEN RT WAS IN THE ROOM, IT REBOUNDS IN A FEW SECONDS. 78% TO 93% ON 3 LITERS NC HIGH FLOW. THE CALL LIGHT IS WITHIN REACH AND THE BED ALARM IS ON.
--- NOTE | 2021-02-15 19:16 | NUR ---
RECEIVED BEDSIDE SHIFT REPORT, PT RESTING, AROUSES TO SOFT VERBAL STIMULATION, INFORMED PT THAT I WILL BE BACK SHORTLY TO DO ASSESSMENT, PT VERBALIZES UNDERSTANDING, DENIES NEEDS AT THIS TIME, FALL PRECAUTIONS IN PLACE
[2021-02-15 19:33] VITALS: BP 124/70
--- NOTE | 2021-02-15 21:03 | NUR ---
PT RESTING WITH EYES CLOSED, AROUSES TO SOFT VERBAL STIMULATION, ASSESSMENT PER FLOW SHEET, VS OBTAINED PER FLAT LOCK MACHINE OPERATOR, PT REPORTS FLATUS, NO BM AND USING URINAL WITH NO DIFFICULTY, MANDEEP TO LEFT SIDE OF CHEST CDI WITH NO DRAINAGE NOTED, CHEST TUBE INC WITH DRESSING CDI WITH NO DRAINAGE NOTED, OBTAINED FSBS, ADM 2100 MEDS PER MD ORDERS, SEE EMAR, PT REFUSES SNACK, DENIES NEEDS AT THIS TIME, FALL PRECAUTIONS IN PLACE
--- NOTE | 2021-02-15 23:20 | NUR ---
PT RESTING WITH EYES CLOSED, RESP QUIET, NO DISTRESS NOTED, LEFT UNDISTURBED AT THIS TIME, FALL PRECAUTIONS IN PLACE
--- NOTE | 2021-02-16 02:22 | NUR ---
PT RESTING WITH EYES CLOSED, RESP QUIET, NO DISTRESS NOTED, LEFT UNDISTURBED AT THIS TIME, FALL PRECAUTIONS IN PLACE
--- NOTE | 2021-02-16 04:45 | NUR ---
PT RESTING WITH EYES CLOSED, RESP QUIET, NO DISTRESS NOTED, LEFT UNDISTURBED AT THIS TIME, URINAL EMPTIED PER AIRPLANE GASTANK LINER ASSEMBLER, FALL PRECAUTIONS IN PLACE
--- NOTE | 2021-02-16 06:12 | NUR ---
PT AWAKE, EMPTIED 650 FROM URINAL, FRESH H20 SERVED, PT DENIES FURTHER NEEDS, FALL PRECAUTIONS IN PLACE
[2021-02-16 06:15] LABS: EOSINOPHILS 18.7 % (0-7); HEMATOCRIT 32.4 % (42.0-54.0); HEMOGLOBIN 10.7 g/dL (13.5-17.5); LYMPHOCYTES 20.5 % (15-50); MEAN PLATELET VOLUME 7.6 fL (7.4-10.4); MONOCYTES 10.8 % (2-11); PLATELET COUNT 327 10x3/uL (130-400); RBC 3.45 10x6/uL (4.20-6.10); RDW 14.2 % (11.5-14.5)
[2021-02-16 06:21] LABS: ANION GAP 11.7 mmol/L (8-16); CALCIUM 8.3 mg/dL (8.5-10.1); CARBON DIOXIDE 26.5 mmol/L (21.0-32.0); CREATININE - SERUM 1.5 mg/dL (0.6-1.3); POTASSIUM - SERUM 4.2 mmol/L (3.5-5.1)
[2021-02-16 07:00] VITALS: BP 141/71
--- NOTE | 2021-02-16 08:30 | NUR ---
HE IS SETTING UP IN THE BED EATING BREAKFAST. HE TOOK HIS MEDICATIONS WITHOUT ANY PROBLEMS. HE IS VERY SOB, SATS DROP WHEN MOVING IN BED OR WALKING TO THE SINK. HE IS ON 4 LITERS HIGH FLOW NC. THE CALL LIGHT IS WITHIN REACH AND THE BED ALARM IS ON.
--- NOTE | 2021-02-16 12:29 | NUR ---
RECIEVED AUTH OKDI BEAVERS THAT PATIENT HAS DAYS UNTIL 02/22/21. UPDATES DUE 02/21/21. WILL CONTINUE TO FOLLOW WITH PATIENT.
--- NOTE | 2021-02-16 19:53 | NUR ---
SPOKE WITH DR CHRISTIAN ABOUT PT O2 AT 6L AND SOB WITH EXERTION, CXR ORDERED AND DR CHRISTIAN REQUEST CALL WITH RESULTS
[2021-02-16 20:46] VITALS: BP 120/72
--- NOTE | 2021-02-16 20:53 | NUR ---
SPOKE WITH DR CHRISTIAN ABOUT PT CXR RESULTS, WILL CONT CURRENT ORDERS AND MONITOR
--- NOTE | 2021-02-16 22:21 | NUR ---
RESTING IN BED, NO DISTRESS NOTED, STATES THAT HE HAS HAD A BAD DAY, MEDICATED FOR R SIDE PAIN, CONT TO MONITOR SATS, ENC USE OF IS
--- NOTE | 2021-02-16 23:13 | RHP ---
PATIENT: AMARA YEN MEDICAL RECORD: [id number] ACCOUNT: [id number] LOCATION:[place] [address] : 46 ADMISSION DATE: 02/08/21 REHABILITATION HISTORY AND PHYSICAL EXAMINATION POST ADMISSION PHYSICIAN EXAMINATION ADMITTING DIAGNOSIS: Disuse myopathy. HISTORY OF PRESENT ILLNESS: The patient presented to the ED on 01/26/2021 with complaints of shortness of breath. He had been discharged about a month ago after a spontaneous pneumothorax and status post VATS procedure. The patient stated in the morning, he sneezed, he felt a pop and became short of breath. He also complained of abdominal pain and distention. The patient has got a history of severe emphysema. X-rays showed a large pneumothorax anteriorly on the right. The patient had bilateral lower airspace disease consistent with atelectasis. CT done of the chest on 01/26/2021 showed a large right-sided pneumothorax, predominantly anterior and posterior. There was a mediastinal shift from right to left, indicating a tension component to the pneumothorax. He had a chest tube placement. The patient was taken from the ER by Dr. 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 He was sent to the ICU with a right chest tube, spinal epidural and right subclavian. The patient while in the ICU received banana bags in addition to Librium and Ativan to prevent possible DTs. Apparently, he is a pretty good drinker. The patient ended up with atrial fibrillation, was seen and evaluated by cardiology. The patient was placed on appropriate IV medications and antibiotics. The patient has been requiring IV pain medications. He was placed on electrolyte protocol. He was transferred to the floor on 02/01/2021 with telemetry. He has been switched mainly to p.o. medications at this time. He went approximately 9 days without a bowel movement, so he has been heavily dosed to aid in medications for this. Prior to this first VATS procedure in 12/17. He was living at home, was independent with a cane. After the VATS, he had his brother and a friend that came over to help him when needed. He is currently very debilitated. He has sternal precautions with movement, proximal muscle weakness. He is mod to max assist with functional mobility and ADLs, easily fatigued. He is currently on oxygen. He is oxygen dependent. He has made considerable progress with limited therapy so far. He is going to need aggressive therapy to get back to his prior level of functioning and hopefully home. COMORBIDITIES: In this patient include atrial fib, allergic rhinitis, anemia, coronary artery disease, cardiomegaly, cognitive deficits, COPD, decrease in mobility, decrease in physical functioning, emphysema, fatigue, hypertension, hyperglycemia, low albumin, obesity, pain, safety awareness problems. PAST MEDICAL HISTORY: Significant for diabetes, hypertension, COPD, spontaneous pneumothorax, neck cancer, interstitial lung disease with fibrosis, hyperlipidemia, urinary retention, BPH, ETOH use. PAST SURGICAL HISTORY: Includes a VATS. ALLERGIES: LEVAQUIN AND CATS. CURRENT MEDICATIONS: Include Pepcid 20 mg daily, he is on Paxil 20 mg daily, he is on a Nicoderm patch daily, he is on Singulair 10 mg daily, he is on gabapentin 300 mg daily, TriCor 145 mg daily, atenolol 50 mg daily, indomethacin HISTORY AND PHYSICAL [id number] BALL,AMARA 75 mg b.i.d. with meals, Flomax 0.4 mg at bedtime, potassium 20 mEq t.i.d., polyethylene glycol 17 grams in 8 ounces of water daily, Bactrim nasal spray, he is on Mucinex one tab b.i.d., gabapentin 600 mg at bedtime, Proscar 5 mg at bedtime, Tessalon Perles 200 mg t.i.d., atorvastatin 20 mg at bedtime, amiodarone 200 mg b.i.d., Zofran 4 mg every 8 hours, Atrovent updrafts, formoterol 20 mcg b.i.d., Pulmicort 0.5 mg b.i.d., Tylenol 650 every 4 hours p.r.n. HABITS: Does have a strong history of tobacco and alcohol use. FAMILY HISTORY: Noncontributory. SOCIAL HISTORY: The patient hopes to return back home. Once again, he has got family members and a friend that will help him. REVIEW OF SYSTEMS: GENERAL: Does complain of weakness and fatigue. HEENT: Does complain of cold, cough, congestion. CARDIOVASCULAR: Denies any chest pain. LUNGS: Does complain of shortness of breath. PHYSICAL EXAMINATION: VITAL SIGNS: Stable, afebrile. GENERAL: A somewhat obese gentleman in no acute distress, alert upon exam. HEENT: Head is normocephalic, atraumatic. Mucosa moist. NECK: Supple without adenopathy. LUNGS: Clear in upper villegas. HEART: Irregular rate and rhythm. ABDOMEN: Soft, benign, nondistended. Positive bowel sounds times 4. EXTREMITIES: No clubbing, cyanosis or edema. NEUROLOGIC: Does have some diffuse weakness. LABORATORY DATA: His white count is 7.7, H&H of 10.7 and 31.4 and platelet count is 387. His sodium is 137, potassium 4.3, BUN and creatinine of 14 and 1.2, and blood sugar is noted to be 115. ASSESSMENT: This is a 70-year-old male patient admitted to rehab with a working diagnosis of disuse myopathy secondary to recent video-assisted thoracoscopic surgery and pneumothorax. The patient has potential to make improvement. We instituted the following multidisciplinary therapies including, not limited to physical, occupational, respiratory, speech, nutritional services, prosthetics and orthotics. Given his complex medical condition and risks for more complications rehabilitation services cannot be provided at a low level of care such as long-term facility. PLAN: 1. [facility] to include the following disciplines; A. Physical therapy to improve gait, all transfer skills and bed mobility to a modified independent level. B. Occupational therapy to improve activities of daily living. C. Case management to help with discharge planning and placement options. D. Nutrition to assist with nutritional needs. E. Rehabilitation nursing to assist in monitoring the patient's underlying medical condition and to assist with any type of bowel or bladder management. HISTORY AND PHYSICAL [id number] AMARA YEN 2. The patient's current medication and Medicare will be continued. 3. Will be placed on standard fall precautions. 4. The patient's estimated length of stay is approximately 7-10 days. 5. Discuss this patient's care team staff meeting this week. We will continue on appropriate home medications and I will see again in the a.m. TRANSINT:[id number] Voice Confirmation ID: [id number] DOCUMENT ID: [id number] 02/15/2021 Edited for jerilyn SPANGLER. ANÍBAL notes whether there has been none or any medical/functional change since admission: - No change since preadmission screen. ANÍBAL attests patient continues to be appropriate for IRF: - Continues to be appropriate. CONNIE GOMEZ MD at [id number] CC: [id number] DICTATION DATE: 02/09/2137 [employer] AND [employer] EXPLORATION TECHNICIAN: 02/09/21 09 ADM IN [facility] [address] [place] [address]
[2021-02-17 06:30] LABS: EOSINOPHILS 18.7 % (0-7); HEMOGLOBIN 11.3 g/dL (13.5-17.5); LYMPHOCYTES 18.3 % (15-50); MCH 31.3 pg (26.0-34.0); MCHC 33.2 g/dL (31.0-37.0); MCV 94.2 fL (80.0-100.0); MEAN PLATELET VOLUME 7.2 fL (7.4-10.4); MONOCYTES 10.3 % (2-11); NEUTROPHILS 51.7 % (40-80); PLATELET COUNT 300 10x3/uL (130-400); RBC 3.61 10x6/uL (4.20-6.10); RDW 14.2 % (11.5-14.5); WBC 9.5 10x3/uL (4.8-10.8)
[2021-02-17 06:46] LABS: ANION GAP 10.2 mmol/L (8-16); CALCIUM 8.5 mg/dL (8.5-10.1); CARBON DIOXIDE 27.2 mmol/L (21.0-32.0); CREATININE - SERUM 1.3 mg/dL (0.6-1.3); POTASSIUM - SERUM 4.4 mmol/L (3.5-5.1)
[2021-02-17 07:00] VITALS: BP 139/69
--- NOTE | 2021-02-17 08:07 | NUR ---
PATIENT SITTING UP IN BED. ALERT/ORIENT. CALL LIGHT WITHIN REACH. OXYGEN ON AT 6L PER N/C WAITING FOR DR CHRISTIAN TO SEE PATIENT. WILL CONTINUE WITH PLAN OF CARE
--- NOTE | 2021-02-17 10:53 | NUR ---
RESPITORY THERAPIST IN PATIENTS ROOM. OXYGEN TURNED UP TO 10L/NC. PULSE OX 92%. THIS NURSE PAGED DR CHRISTIAN. DR CHRISTIAN ORDERED ABG. STATED HE WILL BE DOWN TO SEE PATIENT AFTER HE LOOKS AT HIS CHART.
--- NOTE | 2021-02-17 12:23 | NUR ---
DR CHRISTIAN INTO SEE PATIENT. NEW ORDERS RECEIVED.
--- NOTE | 2021-02-17 17:29 | NUR ---
DR Nimisha GOMEZ INTO SEE PATIENT. NEW ORDERS RECEIVED
[2021-02-17 19:00] VITALS: BP 130/68
--- NOTE | 2021-02-17 21:26 | NUR ---
RESTING IN BED, O2 SAT 89, RT EVAL PT AND CONTACTED DR CHRISTIAN, ORDERS FOR BIPAP IN PLACE, BEING SET UP AT PRESENT, TOOK PO MEDS WITH EASE, STATES HE HASNT HAD A BM IN A WEEK, CONT MIRALAX AND MONITOR
--- NOTE | 2021-02-18 09:05 | NUR ---
PATIENT UNABLE TO TOLERATE ANY TIME WITHOUT THE BIPAP. ATTEMPTED TO ALLWO THE PATIENT TO EAT WITH A HIGH FLOW NASAL CANNULA ON 15LPM AND THE PATIENT DESATED TO THE LOW 70'S. REPLACED THE BIPAP ON THE PATIENT AND O2 SAT RESTABILIZED TO 90% EDUCATED PATIENT ON THE IMPORTANCE OF KEEPING THE BIPAP ON AND IN PLACE WHILE THIS NURSE CALLS THE DOCTOR TO RECIEVE NEW ORDERS. THIS NURSE CALLED DR CHRISTIAN AND HE REPORTED TO CALL THE PRIMARY DOCTOR AND SEND HIM BACK TO THE ACUTE FLOOR. THIS NURSE CALLED DR GOMEZ TO RECIEVE TRANSFER ORDERS. THIS NURSE CALLED UTILITY MECHANIC TO KEEP ABREAST OF THE NEED OF AN ACUTE BED. WILL CONTINUE TO MONITOR WHILE AWAITING A NEW ROOM
== END 2021-02-18 11:15 | disposition short-term general hospital (02) | DRG 92 ==
LOC: D.REHAB 19:15
PROVIDERS: ADMIT Emergency Medicine; ATTEND Emergency Medicine
DX: G72.89 Other specified myopathies (principal); J84.9 Interstitial pulmonary disease, unspecified; J90 Pleural effusion, not elsewhere classified; I48.91 Unspecified atrial fibrillation; J30.9 Allergic rhinitis, unspecified; D64.9 Anemia, unspecified; I10 Essential (primary) hypertension; I51.7 Cardiomegaly; R41.89 Other symptoms and signs involving cognitive functions and awareness; J43.9 Emphysema, unspecified; R53.83 Other fatigue; E11.65 Type 2 diabetes mellitus with hyperglycemia; E66.9 Obesity, unspecified; R52 Pain, unspecified; Z99.81 Dependence on supplemental oxygen; I25.10 Atherosclerotic heart disease of native coronary artery without angina pectoris; R53.81 Other malaise; E11.40 Type 2 diabetes mellitus with diabetic neuropathy, unspecified; R26.2 Difficulty in walking, not elsewhere classified; R06.00 Dyspnea, unspecified; E87.8 Other disorders of electrolyte and fluid balance, not elsewhere classified; M10.9 Gout, unspecified; N40.0 Benign prostatic hyperplasia without lower urinary tract symptoms; R60.9 Edema, unspecified